=== PATIENT | female | born 1990 | race Caucasian/White ===

== ENCOUNTER 2016-11-30 10:55 | Emergency (ER) | payer OTHER ==
[2016-11-30] MEDS ORDERED: Sodium Chloride 0.9% 1000 ML 1,000 ML IV STA (11:21)
[2016-11-30] MEDS ORDERED: TORAdol 30 mg Injection IV ONE (11:21)
[2016-11-30] MEDS ORDERED: BENADRYL 50 MG/ML IV ONE (11:21)
[2016-11-30] MEDS ORDERED: Reglan 10 MG/2 ML IV ONE (11:21)
[2016-11-30] MEDS ORDERED: Sodium Chloride 0.9% 1000 ML 1,000 ML ONE (11:33)
[2016-11-30] MEDS ORDERED: Reglan 10 MG/2 ML ONE (11:33)
[2016-11-30] MEDS ORDERED: BENADRYL 50 MG/ML ONE (11:33)
[2016-11-30] MEDS ORDERED: TORAdol 30 mg Injection ONE (11:33)
--- NOTE | 2016-11-30 12:28 | ERPHSYRPT ---
- History of Present Illness Time Seen by Provider: 11/30/16 11:11 Source: patient Patient Subjective Stated Complaint: pt co cough-dry, runny clear nasal drainage , headache, fever, aches for 3 days Triage Nursing Assessment: pt alert and in no distress, resp easy,skin w/d. has dry cough Physician History: CC: fever Hx: 26 y/o healthy patient with 3 day hx of cough, mylagias, fever, chills, aches, pains. She was exposed to flu. Headache has been worse symptoms, and gradual. She has hx of migraine. Some nausea. Severity: moderate Allergies/Adverse Reactions: clarithromycin [From Biaxin] Allergy (Verified 11/30/16 11:10) Hx Tetanus, Diphtheria Vaccination/Date Given: Yes Hx Influenza Vaccination/Date Given: No Hx Pneumococcal Vaccination/Date Given: No Immunizations Up to Date: Yes - Review of Systems Constitutional: Fever, Chills, Malaise Eyes: No Symptoms Ears, Nose, & Throat: Throat Pain Respiratory: Cough Abdominal/Gastrointestinal: Nausea Genitourinary Symptoms: No Dysuria Skin: No Rash Neurological: Headache, No Focal Weakness, No Parasthesia All Other Systems: Reviewed and Negative - Past Medical History Pertinent Past Medical History: Yes Neurological History: Migraines ENT History: No Pertinent History Cardiac History: Other Respiratory History: No Pertinent History Endocrine Medical History: No Pertinent History Musculoskeletal History: No Pertinent History GI Medical History: Irritable Bowel History: No Pertinent History Psycho-Social History: No Pertinent History Female Reproductive Disorders: No Pertinent History Other Medical History: CHD, heart murmur - Past Surgical History Past Surgical History: Yes Neuro Surgical History: No Pertinent History Cardiac: No Pertinent History Respiratory: No Pertinent History Gastrointestinal: No Pertinent History Genitourinary: No Pertinent History Musculoskeletal: No Pertinent History Female Surgical History: No Pertinent History Other Surgical History: SURGERY ON FOREHEAD - Social History Smoking Status: Current every day smoker How long have you smoked: 5 Exposure to second hand smoke: Yes Drug Use: marijuana Patient Lives Alone: No - Female History Hx Last Menstrual Period: 11/27/16 - Nursing Vital Signs Nursing Vital Signs: Initial Vital Signs Temperature 98.4 F Temperature Source Oral Pulse Rate 86 Respiratory Rate 16 Blood Pressure [Left Arm] 87/52 Pain Intensity 5 - Physical Exam General Appearance: alert Eye Exam: PERRL/EOMI Ears, Nose, Throat Exam: normal ENT inspection, pharyngeal erythema Neck Exam: normal inspection, non-tender, supple Respiratory Exam: normal breath sounds, No lungs clear Cardiovascular Exam: No regular rate/rhythm Gastrointestinal/Abdomen Exam: soft, No tenderness, No distention Extremity Exam: normal inspection, normal range of motion Neurologic Exam: alert, oriented x 3, cooperative, sensation nml, No motor deficits Skin Exam: warm, dry, No rash SpO2 Interpretation: normal SpO2: 95 Oxygen Delivery: Room Air - Course Nursing assessment & vital signs reviewed: Yes Ordered Tests: Active Orders 24 hr Category Date Time Status Clean Catch Urine Specimen STAT Care 11/30/16 11:21 Active IV Insertion STAT Care 11/30/16 11:21 Active CULTURE,URINE Stat Lab 11/30/16 13:11 Ordered HCG,QUALITATIVE URINE Stat Lab 11/30/16 12:40 Completed UA W/ MICROSCOPIC Stat Lab 11/30/16 12:40 Completed Medication Summary Discontinued Medications Generic Name Dose Route Start Last Admin Trade Name Freq PRN Reason Stop Dose Admin Diphenhydramine HCl 25 mg 11/30/16 11:21 11/30/16 11:35 Benadryl 50 Mg/Ml IV 11/30/16 11:22 25 mg STAT ONE Administration Diphenhydramine HCl Confirm 11/30/16 11:33 Benadryl 50 Mg/Ml Administered 11/30/16 11:34 Dose 50 mg .ROUTE .STK-MED ONE Sodium Chloride 1,000 mls @ 999 mls/hr 11/30/16 11:21 11/30/16 11:36 Sodium Chloride 0.9% 1000 Ml IV 11/30/16 12:21 999 mls/hr .Q1H1M STA Administration Sodium Chloride Confirm 11/30/16 11:33 Sodium Chloride 0.9% 1000 Ml Administered 11/30/16 11:34 Dose 1,000 mls @ ud .ROUTE .STK-MED ONE Ketorolac Tromethamine 30 mg 11/30/16 11:21 11/30/16 11:35 Toradol 30 Mg Injection IV 11/30/16 11:22 30 mg STAT ONE Administration Ketorolac Tromethamine Confirm 11/30/16 11:33 Toradol 30 Mg Injection Administered 11/30/16 11:34 Dose 30 mg .ROUTE .STK-MED ONE Metoclopramide HCl 10 mg 11/30/16 11:21 11/30/16 11:36 Reglan 10 Mg/2 Ml IV 11/30/16 11:22 10 mg STAT ONE Administration Metoclopramide HCl Confirm 11/30/16 11:33 Reglan 10 Mg/2 Ml Administered 11/30/16 11:34 Dose 10 mg .ROUTE .STK-MED ONE Lab/Rad Data: Laboratory Results 11/30/16 11/30/16 11/30/16 Range/Units 12:40 12:40 11:24 Ur Collection Type VOID Urine Color YELLOW (YELLOW) Urine Appearance CLOUDY (CLEAR) Urine pH 5.5 (5-6) Ur Specific [place] 1.025 (1.005-1.025) Urine Protein TRACE (Negative) Urine Glucose (UA) NEGATIVE (NEGATIVE) mg/dL Urine Ketones TRACE (NEGATIVE) Urine Nitrite NEGATIVE (NEGATIVE) Urine Bilirubin NEGATIVE (NEGATIVE) Urine Urobilinogen 0.2 (0-1) mg/dL Urine WBC (Auto) SMALL (NEGATIVE) Urine RBC (Auto) NEGATIVE (0-5) Michael/ul Urine Microscopic WBC 10-15 (0-5) /HPF Ur Epithelial Cells MODERATE (FEW) /HPF Urine Bacteria MODERATE (NEGATIVE) /HPF Urine HCG, Qual NEGATIVE (Negative) Influenza Type A Ag POSITIVE (NEGATIVE) Influenza Type B Ag NEGATIVE (NEGATIVE) RSV (PCR) NEGATIVE (Negative) Specimen Received 11/30/16 1240 - Progress Progress Note: 11/30/16 13:14 Pt improved. She has flu A. Instr given. Urine culture sent but will not treat now. Symptoms instr given. Counseled pt/family regarding: lab results, diagnosis, need for follow-up - Departure Time of Disposition: 13:15 Departure Disposition: Home Clinical Impression: Influenza A Condition: Stable Critical Care Time: No Referrals: DAYNA CERVANTES [Primary Care Provider] - Instructions: Influenza -- Adult Additional Instructions: VIRAL ILLNESS 1. Rest at home and take any prescribed medications as directed or until gone. 2. Offer plenty of fluids as tolerated. 3. Acetaminophen or Ibuprofen as directed. 4. Be sure to follow up with your family physician or return to the emergency department if symptoms change or become worse. push oral fluids. Tylenol/ibuprofen as directed for fever/discomfort. Rx albuterol MDI. Prescriptions: Albuterol Sulfate [Albuterol Sulfate Hfa] 2 puff IH Q4-6HPRN PRN #1 [email or web address] PRN Reason: cough or wheeze
[2016-11-30 12:52] LABS: COMPLETE URINE MICROSCOPIC? YES; Collection Type VOID; Ph 5.5 (5-6)
[2016-11-30 13:04] LABS: Bacteria MODERATE /HPF (NEGATIVE); Epithelial Cells MODERATE /HPF (FEW)
[2016-11-30 13:38] VITALS: BP 90/50; PULSE 93; O2SAT 96
== END 2016-11-30 13:39 | disposition home or self-care (01) ==
LOC: ED 10:55
DX: J11.1 Influenza due to unidentified influenza virus with other respiratory manifestations (principal); R50.9 Fever, unspecified; R51 Headache
CPT/HCPCS: 36000; 81000; 84703; 87086; 87631; 96360; 96374; 96375; 99283; J1200; J1885

== ENCOUNTER 2017-03-24 20:01 | Emergency (ER) | payer OTHER ==
[2017-03-24 20:08] VITALS: O2SAT 100
--- NOTE | 2017-03-24 21:38 | ERPHSYRPT ---
- History of Present Illness Time Seen by Provider: 03/24/17 21:29 Source: patient Exam Limitations: no limitations Patient Subjective Stated Complaint: a0 - reports 10 weeks - states that she had onset of frontal migraine headache this morning and gradually getting worse with dizziness and nausea - 4-5 episodes of vomiting today Triage Nursing Assessment: ambulatory to treatment area - steady gait - moves all extremities with equal strength. alert/oriented - unpleasant affect. skin pwd - no rash/injury. resps easy - non-labored Physician History: FOR THE PAST 11 HOURS PT HAS HAD A FRONTAL HEADACHE; FOR THE PAST 9 HOURS DIZZINESS, SHORTNESS OF AIR AND VOMITING X5 WITHOUT BLOOD. LAST BM WAS THIS AM & WNL. PT STATES SHE IS 10 WEEKS AND ALL IS GOING WELL WITH THE . Allergies/Adverse Reactions: clarithromycin [From Biaxin] Allergy (Verified 03/24/17 20:05) Hx Tetanus, Diphtheria Vaccination/Date Given: Yes Hx Influenza Vaccination/Date Given: No Hx Pneumococcal Vaccination/Date Given: No Immunizations Up to Date: Yes - Review of Systems Constitutional: No Fever Respiratory: Dyspnea Cardiac: No Chest Pain Abdominal/Gastrointestinal: Vomiting, No Abdominal Pain, No Diarrhea Neurological: Dizziness, Headache All Other Systems: Reviewed and Negative - Past Medical History Pertinent Past Medical History: Yes Neurological History: Migraines ENT History: No Pertinent History Cardiac History: Other Respiratory History: No Pertinent History Endocrine Medical History: No Pertinent History Musculoskeletal History: No Pertinent History GI Medical History: Irritable Bowel History: No Pertinent History Psycho-Social History: No Pertinent History Female Reproductive Disorders: No Pertinent History Other Medical History: CHD, heart murmur - Past Surgical History Past Surgical History: Yes Neuro Surgical History: No Pertinent History Cardiac: No Pertinent History Respiratory: No Pertinent History Gastrointestinal: No Pertinent History Genitourinary: No Pertinent History Musculoskeletal: No Pertinent History Female Surgical History: No Pertinent History Other Surgical History: SURGERY ON FOREHEAD - Social History Smoking Status: Never smoker How long have you smoked: 5 Exposure to second hand smoke: No Drug Use: none Patient Lives Alone: No - Female History Hx Last Menstrual Period: 01/18/2017 - Nursing Vital Signs Nursing Vital Signs: Initial Vital Signs Temperature 98.0 F Temperature Source Oral Pulse Rate 104 Respiratory Rate 20 Blood Pressure [Right Arm] 134/79 Pain Intensity 4 - Physical Exam General Appearance: alert Eye Exam: PERRL/EOMI Ears, Nose, Throat Exam: TMs normal, pharynx normal, moist mucous membranes Neck Exam: normal inspection Respiratory Exam: lungs clear Cardiovascular Exam: normal peripheral pulses Gastrointestinal/Abdomen Exam: soft, normal bowel sounds Back Exam: normal range of motion Extremity Exam: normal inspection, normal range of motion, No pedal edema Neurologic Exam: 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, 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, 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, normal mood/ affect, sensation nml, No motor deficits Skin Exam: warm, dry SpO2 Interpretation: normal SpO2: 100 Oxygen Delivery: Room Air - Course Nursing assessment & vital signs reviewed: Yes EKG Interpreted by Me: RATE (61), NORMAL AXIS, NORMAL QRS, Other (SINUS ARRHYTHMIA) Ordered Tests: Active Orders 24 hr Category Date Time Status EKG-ER Only STAT Care 03/24/17 21:45 Active IV Insertion STAT Care 03/24/17 21:45 Active AMYLASE Stat Lab 03/24/17 22:11 Completed CBC W DIFF Stat Lab 03/24/17 22:11 Completed CMP Stat Lab 03/24/17 22:11 Completed LIPASE Stat Lab 03/24/17 22:11 Completed MAG [MAGNESIUM] Stat Lab 03/24/17 22:11 Completed TROPONIN Stat Lab 03/24/17 22:11 Completed UA W/RFX UR CULTURE Stat Lab 03/24/17 20:00 Completed Medication Summary Generic Name Dose Route Start Last Admin Trade Name Freq PRN Reason Stop Dose Admin Magnesium Oxide 400 mg 03/25/17 10:00 Mag-Ox 400 PO 04/24/17 09:59 BID HARRISON Discontinued Medications Generic Name Dose Route Start Last Admin Trade Name Freq PRN Reason Stop Dose Admin Sodium Chloride 1,000 mls @ 999 mls/hr 03/24/17 21:45 03/24/17 22:02 Sodium Chloride 0.9% 1000 Ml IV 03/24/17 22:45 999 mls/hr .Q1H1M STA Administration Sodium Chloride Confirm 03/24/17 21:51 Sodium Chloride 0.9% 1000 Ml Administered 03/24/17 21:52 Dose 1,000 mls @ ud .ROUTE .STK-MED ONE Promethazine HCl 12.5 mg 03/24/17 21:45 03/24/17 22:02 Phenergan 25 Mg Inj IV 03/24/17 21:46 12.5 mg STAT ONE Administration Promethazine HCl Confirm 03/24/17 21:50 Phenergan 25 Mg Inj Administered 03/24/17 21:51 Dose 25 mg .ROUTE .STK-MED ONE Lab/Rad Data: Laboratory Result Diagrams 03/24/17 22:11 03/24/17 22:11 Laboratory Results 03/24/17 03/24/17 03/24/17 Range/Units 22:11 22:11 22:11 WBC 9.4 (4.0-10.5) K/mm3 RBC 4.31 (4.1-5.4) M/mm3 Hgb 13.2 (12.0-16.0) gm/dl Hct 38.3 (35-47) % MCV 88.9 (78-100) fl MCH 30.6 (26-32) pg MCHC 34.5 (32-36) g/dl RDW 12.4 (11.5-14.0) % Plt Count 243 (150-450) K/mm3 MPV 10.9 H (6-9.5) fl Gran % 60.0 (36.0-66.0) % Lymphocytes % 30.6 (24.0-44.0) % Monocytes % 8.2 (0.0-12.0) % Eosinophils % 1.0 (0.00-5.0) % Basophils % 0.2 (0.0-0.4) % Basophils # 0.02 (0-0.4) Sodium 137 (136-145) mEq/L Potassium 3.7 (3.5-5.1) mEq/L Chloride 105 (98-107) mEq/L Carbon Dioxide 23.2 (21-32) mEq/L Anion Gap 12.7 (5-15) MEQ/L BUN 3 L (9-20) mg/dL Creatinine 0.58 (0.55-1.30) mg/dl Estimated GFR > 60 ML/MIN Glucose 76 (70-110) MG/DL Calcium 8.4 L (8.5-10.1) mg/dL Magnesium 1.7 L (1.8-2.4) mg/dL Total Bilirubin 0.40 (0.2-1.0) mg/dL AST 13 L (15-37) U/L ALT 10 L (12-78) U/L Alkaline Phosphatase 54 (46-116) U/L Troponin I < 0.017 (0.000-0.056) ng/ml Serum Total Protein 6.8 (6.4-8.2) gm/dL Albumin 3.5 (3.4-5.0) g/dL Amylase 39 (25-115) U/L Lipase 90 (73-393) U/L Ur Collection Type Urine Color (YELLOW) Urine Appearance (CLEAR) Urine pH (5-6) Ur Specific [place] (1.005-1.025) Urine Protein (Negative) Urine Glucose (UA) (NEGATIVE) mg/dL Urine Ketones (NEGATIVE) Urine Nitrite (NEGATIVE) Urine Bilirubin (NEGATIVE) Urine Urobilinogen (0-1) mg/dL Urine WBC (Auto) (NEGATIVE) Urine RBC (Auto) (0-5) Michael/ul Specimen Received 03/24/17 Range/Units 20:00 WBC (4.0-10.5) K/mm3 RBC (4.1-5.4) M/mm3 Hgb (12.0-16.0) gm/dl Hct (35-47) % MCV (78-100) fl MCH (26-32) pg MCHC (32-36) g/dl RDW (11.5-14.0) % Plt Count (150-450) K/mm3 MPV (6-9.5) fl Gran % (36.0-66.0) % Lymphocytes % (24.0-44.0) % Monocytes % (0.0-12.0) % Eosinophils % (0.00-5.0) % Basophils % (0.0-0.4) % Basophils # (0-0.4) Sodium (136-145) mEq/L Potassium (3.5-5.1) mEq/L Chloride (98-107) mEq/L Carbon Dioxide (21-32) mEq/L Anion Gap (5-15) MEQ/L BUN (9-20) mg/dL Creatinine (0.55-1.30) mg/dl Estimated GFR ML/MIN Glucose (70-110) MG/DL Calcium (8.5-10.1) mg/dL Magnesium (1.8-2.4) mg/dL Total Bilirubin (0.2-1.0) mg/dL AST (15-37) U/L ALT (12-78) U/L Alkaline Phosphatase (46-116) U/L Troponin I (0.000-0.056) ng/ml Serum Total Protein (6.4-8.2) gm/dL Albumin (3.4-5.0) g/dL Amylase (25-115) U/L Lipase (73-393) U/L Ur Collection Type CLEAN CATCH Urine Color YELLOW (YELLOW) Urine Appearance CLEAR (CLEAR) Urine pH 7.0 (5-6) Ur Specific [place] 1.010 (1.005-1.025) Urine Protein NEGATIVE (Negative) Urine Glucose (UA) NEGATIVE (NEGATIVE) mg/dL Urine Ketones NEGATIVE (NEGATIVE) Urine Nitrite NEGATIVE (NEGATIVE) Urine Bilirubin NEGATIVE (NEGATIVE) Urine Urobilinogen 0.2 (0-1) mg/dL Urine WBC (Auto) NEGATIVE (NEGATIVE) Urine RBC (Auto) NEGATIVE (0-5) Michael/ul Specimen Received 03/24/171999 - Departure Time of Disposition: 23:35 Departure Disposition: Home Clinical Impression: VOMITING, DYSPNEA, MILD HYPOMAGNESEMIA, DIZZINESS, HEADACHE Condition: Fair Critical Care Time: No Instructions: Vertigo, Headache Additional Instructions: FOLLOW UP WITH PRIVATE DOCTOR TOMORROW. Prescriptions: Promethazine HCl 25 mg [Phenergan 25 mg] 25 mg PO Q4H PRN PRN #14 tablet PRN Reason: Nausea/Vomiting
[2017-03-24] MEDS ORDERED: Phenergan 25 MG INJ IV ONE (21:45)
[2017-03-24] MEDS ORDERED: Sodium Chloride 0.9% 1000 ML 1,000 ML IV STA (21:45)
[2017-03-24] MEDS ORDERED: Phenergan 25 MG INJ ONE (21:50)
[2017-03-24] MEDS ORDERED: Sodium Chloride 0.9% 1000 ML 1,000 ML ONE (21:51)
[2017-03-24 22:08] LABS: ADD URINE CULTURE? NO (NO); COMPLETE URINE MICROSCOPIC? NO; Collection Type CLEAN CATCH
[2017-03-24 22:15] LABS: BASOPHIL % 0.2 % (0.0-0.4); Lymphocytes % 30.6 % (24.0-44.0); Mean Cell Volume 88.9 fl (78-100); Mean Corpuscular Hemoglobin 30.6 pg (26-32); Mean Platelet Volume 10.9 fl (6-9.5); Monocytes % 8.2 % (0.0-12.0); Platelet Count 243 K/mm3 (150-450); Red Blood Count 4.31 M/mm3 (4.1-5.4); Red Cell Distribution Width 12.4 % (11.5-14.0); White Blood Count 9.4 K/mm3 (4.0-10.5)
[2017-03-24 22:46] LABS: ALBUMIN 3.5 g/dL (3.4-5.0); ALKALINE PHOSPHATASE 54 U/L (46-116); ANION GAP 12.7 MEQ/L (5-15); BLOOD UREA NITROGEN 3 mg/dL (9-20); CHLORIDE 105 mEq/L (98-107); Carbon Dioxide 23.2 mEq/L (21-32); Glucose 76 MG/DL (70-110); LIPASE 90 U/L (73-393); Potassium 3.7 mEq/L (3.5-5.1); SGOT/AST 13 U/L (15-37); SGPT/ALT 10 U/L (12-78); SODIUM 137 mEq/L (136-145); Total Protein 6.8 gm/dL (6.4-8.2)
[2017-03-24 22:47] LABS: TROPONIN < 0.017 ng/ml (0.000-0.056)
[2017-03-24] MEDS ORDERED: MAG-OX 400 ONE (23:41)
[2017-03-24 23:52] VITALS: BP 119/70; PULSE 76
[2017-03-25] MEDS ORDERED: MAG-OX 400 PO SCH (10:00)
== END 2017-03-24 23:51 | disposition home or self-care (01) ==
LOC: ED 20:01
DX: R11.2 Nausea with vomiting, unspecified (principal); R06.00 Dyspnea, unspecified; E83.42 Hypomagnesemia; R42 Dizziness and giddiness; R51 Headache; Z3A.10 10 weeks gestation of pregnancy
CPT/HCPCS: 36000; 36415; 80053; 81002; 82150; 83690; 83735; 84484; 85025; 93005; 96360; 96374; 99284; J2550; A9270-GY

== ENCOUNTER 2017-06-28 11:44 | Observation (INO) | payer OTHER ==
[2017-06-28] MEDS ORDERED: Phenergan 25 MG INJ IV PRN (12:23)
[2017-06-28] MEDS ORDERED: Sodium Chloride 0.9% 1000 ML 1,000 ML IV SCH (12:30)
[2017-06-28 12:49] LABS: BASOPHIL % 0.1 % (0.0-0.4); Eosinophil % 0.4 % (0.00-5.0); Lymphocytes % 13.5 % (24.0-44.0); Mean Cell Volume 91.6 fl (78-100); Mean Platelet Volume 10.6 fl (6-9.5); Platelet Count 227 K/mm3 (150-450); Red Blood Count 3.93 M/mm3 (4.1-5.4); Red Cell Distribution Width 12.6 % (11.5-14.0); White Blood Count 11.3 K/mm3 (4.0-10.5)
[2017-06-28 12:50] LABS: Mean Corpuscular Hemoglobin 31.2 pg (26-32)
[2017-06-28 13:18] LABS: ALBUMIN 2.9 g/dL (3.4-5.0); ALKALINE PHOSPHATASE 55 U/L (46-116); ANION GAP 11.8 MEQ/L (5-15); BLOOD UREA NITROGEN 6 mg/dL (9-20); CHLORIDE 107 mEq/L (98-107); Carbon Dioxide 24.7 mEq/L (21-32); Glucose 82 MG/DL (70-110); Potassium 3.5 mEq/L (3.5-5.1); SGOT/AST 16 U/L (15-37); SGPT/ALT 16 U/L (12-78); SODIUM 140 mEq/L (136-145); Total Protein 6.5 gm/dL (6.4-8.2)
[2017-06-28] MEDS: MORPHINE SULFATE 10 MG/ML IV PRN ×2 (13:18→19:56)
[2017-06-28] MEDS: ROCEPHIN 1 Gm-D5w 50 ml Bag** 1 G/50 ML IVPB IV SCH (13:22)
[2017-06-28] MEDS: Lactated Ringers 1,000 ML IV SCH ×2 (15:43→23:51)
[2017-06-28 16:56] LABS: Collection Type VOID; Glucose NEGATIVE (NEGATIVE); Leukocyte Esterase TRACE (NEGATIVE)
[2017-06-28 16:57] LABS: Bacteria FEW /HPF (NEGATIVE); Bilirubin NEGATIVE (NEGATIVE); Blood NEGATIVE Ery/ul (0-5); COMPLETE URINE MICROSCOPIC? YES; Epithelial Cells FEW /HPF (FEW); Mucus SLIGHT /HPF (NEGATIVE)
[2017-06-29 04:18] VITALS: O2SAT 97
[2017-06-29] MEDS: Lactated Ringers 1,000 ML IV SCH (07:58)
--- NOTE | 2017-06-29 08:22 | PCM.NOTE ---
Date and Time: 06/29/17817 Subjective Assessment: 27 yo at 23+ weeks admitted from office yesterday with sinusitis, ARNDT, N/V not tolerating po. ARNDT was 8/10; now 4.5/10, L frontal. Tolerating CLD. Feeling better. FHT positive at bedside. - Review of Systems Constitutional: No Fever Abdominal/Gastrointestinal: No Vomiting Objective Exam General Appearance: mild distress Neurologic Exam: alert, oriented x 3, cooperative Skin Exam: normal color, warm, dry Neck Exam: normal inspection Respiratory Exam: normal breath sounds, No crackles/rales, No rhonchi, No wheezing Cardiovascular Exam: regular rate/rhythm, normal heart sounds, No murmur Gastrointestinal/Abdomen Exam: soft, normal bowel sounds, No tenderness, No mass OBJECTIVE DATA Vital Signs: Vital Signs - 24 hr Temp Pulse Resp BP BP Pulse Ox 06/29/17 07:13 97.8 F 62 16 97/52 97 06/29/17 04:00 97.9 F 68 16 85/49 97 06/28/17 23:42 97.2 F 61 16 96/53 98 06/28/17 22:24 98.0 F 60 18 77/41 98 06/28/17 16:09 96/55 06/28/17 15:59 97.8 F 59 L 16 90/46 96 06/28/17 13:38 97.8 F 85 18 113/68 96 06/28/17 12:00 97.8 F 85 18 113/68 96 Pain Assessment - Last Documented Pain Intensity 4 Pain Scale Used [facility] Intake and Output: Intake & Output 06/26/17 06/27/17 06/28/17 06/29/17 11:59 11:59 11:59 11:59 Intake Total 5186 Output Total 370 Balance 4816 Weight 79.696 kg Lab Results: Lab Results-Last 24 Hours 06/28/17 06/28/17 06/28/17 Range/Units 12:10 12:10 16:36 WBC 11.3 H (4.0-10.5) K/mm3 RBC 3.93 L (4.1-5.4) M/mm3 Hgb 12.3 (12.0-16.0) gm/dl Hct 36.0 (35-47) % MCV 91.6 (78-100) fl MCH 31.2 (26-32) pg MCHC 34.2 (32-36) g/dl RDW 12.6 (11.5-14.0) % Plt Count 227 (150-450) K/mm3 MPV 10.6 H (6-9.5) fl Gran % 81.0 H (36.0-66.0) % Lymphocytes % 13.5 L (24.0-44.0) % Monocytes % 5.0 (0.0-12.0) % Eosinophils % 0.4 (0.00-5.0) % Basophils % 0.1 (0.0-0.4) % Basophils # 0.01 (0-0.4) Sodium 140 (136-145) mEq/L Potassium 3.5 (3.5-5.1) mEq/L Chloride 107 (98-107) mEq/L Carbon Dioxide 24.7 (21-32) mEq/L Anion Gap 11.8 (5-15) MEQ/L BUN 6 L (9-20) mg/dL Creatinine 0.54 L (0.55-1.30) mg/dl Estimated GFR > 60 ML/MIN Glucose 82 (70-110) MG/DL Calcium 8.3 L (8.5-10.1) mg/dL Total Bilirubin 0.40 (0.2-1.0) mg/dL AST 16 (15-37) U/L ALT 16 (12-78) U/L Alkaline Phosphatase 55 (46-116) U/L Serum Total Protein 6.5 (6.4-8.2) gm/dL Albumin 2.9 L (3.4-5.0) g/dL Ur Collection Type VOID Urine Color YELLOW (YELLOW) Urine Appearance CLEAR (CLEAR) Urine pH 6.0 (5-6) Ur Specific [place] 1.020 (1.005-1.025) Urine Protein TRACE (Negative) Urine Ketones MODERATE (NEGATIVE) Urine Blood NEGATIVE (0-5) Michael/ul Urine Nitrite NEGATIVE (NEGATIVE) Urine Bilirubin NEGATIVE (NEGATIVE) Urine Urobilinogen NORMAL (0-1) mg/dL Ur Leukocyte Esterase TRACE (NEGATIVE) Urine Microscopic WBC 2-5 (0-5) /HPF Ur Epithelial Cells FEW (FEW) /HPF Urine Bacteria FEW (NEGATIVE) /HPF Urine Mucus SLIGHT (NEGATIVE) /HPF Urine Glucose NEGATIVE (NEGATIVE) mg/dL Specimen Received 06/28/17 1636 Assessment/Plan (1) Current Visit: Yes Status: Acute Qualifiers: Weeks of gestation: 23 weeks Qualified Code(s): Z3A.23 - 23 weeks gestation of Assessment & Plan: Doing well, FHT around 160 today at bedside. Code(s): Z33.1 - STATE, INCIDENTAL (2) Sinusitis Current Visit: Yes Status: Acute Qualifiers: Sinusitis location: frontal Chronicity: acute Recurrence: non-recurrent Qualified Code(s): J01.10 - Acute frontal sinusitis, unspecified Assessment & Plan: On IV rocephin. Improved. If ARNDT much better later today, will discharge to home. Otherwise may need to stay another day. Code(s): J32.9 - CHRONIC SINUSITIS, UNSPECIFIED (3) Vomiting Current Visit: Yes Status: Resolved Assessment & Plan: Likely due to acute infection/sinus drainage. Resolved. Advance diet to regular. Code(s): R11.10 - VOMITING, UNSPECIFIED
[2017-06-29] MEDS ORDERED: [UNRECOGNIZED DRUG - REMARK] PO SCH (10:00)
[2017-06-29] MEDS ORDERED: THERAGRAN MULTIVITAMIN PO SCH (10:00)
[2017-06-29] MEDS: ROCEPHIN 1 Gm-D5w 50 ml Bag** 1 G/50 ML IVPB IV SCH (10:13)
[2017-06-29 10:49] VITALS: BP 96/51; PULSE 58
--- NOTE | 2017-06-29 13:11 | PCM.DS ---
Discharge Summary Date of Admission: 06/28/17 11:44 Admitting Physician: DAYNA CERVANTES Primary Care Provider: DAYNA CERVANTES Allergies Allergies clarithromycin [From Biaxin] Allergy (Verified 03/24/17 20:05) Hospital Summary - Hospital Course Hospital Course: Pt at 23 + weeks admitted for sinusitis and not tolerating po. She was feeling better this morning but still with ARNDT; currently feeling good and tolerated regular lunch; will go home on po augmentin. - Vitals & Intake/Output Vital Signs: Vital Signs Temperature 98.5 F 06/29/17 10:48 Pulse Rate 58 L 06/29/17 10:48 Respiratory Rate 18 06/29/17 10:48 Blood Pressure 96/51 06/29/17 10:48 O2 Sat by Pulse Oximetry 97 06/29/17 10:48 Intake & Output: Intake & Output 06/27/17 06/28/17 06/29/17 06/30/17 11:59 11:59 11:59 11:59 Intake Total 5546 360 Output Total 1170 400 Balance 4376 -40 Weight 79.696 kg - Lab Result Diagrams: 06/28/17 12:10 06/28/17 12:10 Lab Results-Last 24 Hrs: Lab Results-Last 24 Hours 06/28/17 06/28/17 Range/Units 12:10 16:36 Sodium 140 (136-145) mEq/L Potassium 3.5 (3.5-5.1) mEq/L Chloride 107 (98-107) mEq/L Carbon Dioxide 24.7 (21-32) mEq/L Anion Gap 11.8 (5-15) MEQ/L BUN 6 L (9-20) mg/dL Creatinine 0.54 L (0.55-1.30) mg/dl Estimated GFR > 60 ML/MIN Glucose 82 (70-110) MG/DL Calcium 8.3 L (8.5-10.1) mg/dL Total Bilirubin 0.40 (0.2-1.0) mg/dL AST 16 (15-37) U/L ALT 16 (12-78) U/L Alkaline Phosphatase 55 (46-116) U/L Serum Total Protein 6.5 (6.4-8.2) gm/dL Albumin 2.9 L (3.4-5.0) g/dL Ur Collection Type VOID Urine Color YELLOW (YELLOW) Urine Appearance CLEAR (CLEAR) Urine pH 6.0 (5-6) Ur Specific [place] 1.020 (1.005-1.025) Urine Protein TRACE (Negative) Urine Ketones MODERATE (NEGATIVE) Urine Blood NEGATIVE (0-5) Michael/ul Urine Nitrite NEGATIVE (NEGATIVE) Urine Bilirubin NEGATIVE (NEGATIVE) Urine Urobilinogen NORMAL (0-1) mg/dL Ur Leukocyte Esterase TRACE (NEGATIVE) Urine Microscopic WBC 2-5 (0-5) /HPF Ur Epithelial Cells FEW (FEW) /HPF Urine Bacteria FEW (NEGATIVE) /HPF Urine Mucus SLIGHT (NEGATIVE) /HPF Urine Glucose NEGATIVE (NEGATIVE) mg/dL Specimen Received 06/28/17 6227 - Procedures and Test Procedures and Tests throughout Hospitalization: Therapy Orders & Screens 06/28/17 14:38 Smoking Cessation Education ONCE Comment: Diagnosis: 23+ wk, vomiting, sinusitis Smoking Status: Current every day smoker How long have you smoked: 5 Have you smoked in the past 12 months: Yes Approximately how many cigarettes per day: 10 Do you dip or chew tobacco: No Discharge Exam General Appearance: mild distress (due to ARNDT at 0800), alert (exam done at approx 0800 this morning) Neurologic Exam: alert, oriented x 3, cooperative Skin Exam: normal color, warm, dry Respiratory Exam: normal breath sounds, lungs clear, No crackles/rales, No rhonchi, No wheezing Cardiovascular Exam: regular rate/rhythm, normal heart sounds, No murmur Gastrointestinal/Abdomen Exam: soft, normal bowel sounds, other (gravid, fundus palpable just superior to umbilicus) Extremity Exam: normal inspection Back Exam: normal inspection Final Diagnosis/Problem List - Final Discharge Diagnosis/Problem (1) Current Visit: Yes Status: Acute Assessment & Plan: stable, doing great, FHT + this morning. (2) Sinusitis Current Visit: Yes Status: Acute Assessment & Plan: home on augmentin x 8d (3) Vomiting Current Visit: Yes Status: Resolved Assessment & Plan: now lilliam po. - Discharge Disposition: Home, Self-Care Condition: Stable Prescriptions: New Amoxicillin/Potassium Clav [Augmentin 875-125 Tablet] 875 mg PO BID #16 tablet Continue Pnv No.118/Iron Fumarate/FA [ 19 Chewable Tablet] 2 tab PO DAILY Instructions: Migraine, Sinusitis, Vomiting -- Adult Follow up with: DAYNA CERVANTES [Primary Care Provider] - 07/06/17 11:15 am Forms: Discharge Instructions
== END 2017-06-29 14:20 | disposition home or self-care (01) ==
LOC: MED SURG 11:44
PROVIDERS: ADMIT Family Medicine; ATTEND Family Medicine
DX: J01.10 Acute frontal sinusitis, unspecified (principal); R11.10 Vomiting, unspecified; R51 Headache; Z33.1 Pregnant state, incidental
CPT/HCPCS: 36415; 80053; 81000; 85025; G0378; J0696; J2270; J2550; A9270-GY

== ENCOUNTER 2017-08-09 15:39 | Observation (INO) | payer OTHER ==
[2017-08-09 17:17] LABS: Bacteria FEW /HPF (NEGATIVE); Bilirubin NEGATIVE (NEGATIVE); Blood NEGATIVE Ery/ul (0-5); COMPLETE URINE MICROSCOPIC? YES; Collection Type VOID; Epithelial Cells FEW /HPF (FEW); Glucose NEGATIVE (NEGATIVE); Leukocyte Esterase 1+ (NEGATIVE)
[2017-08-09] MEDS ORDERED: TYLENOL 325 MG PO PRN (17:59)
[2017-08-09 18:25] LABS: BASOPHIL % 0.2 % (0.0-0.4); Eosinophil % 0.7 % (0.00-5.0); Granulocytes % 72.2 % (36.0-66.0); Lymphocytes % 20.7 % (24.0-44.0); Mean Cell Volume 92.4 fl (78-100); Mean Corpuscular Hemoglobin 31.6 pg (26-32); Mean Platelet Volume 10.3 fl (6-9.5); Monocytes % 6.2 % (0.0-12.0); Platelet Count 239 K/mm3 (150-450); Red Blood Count 3.95 M/mm3 (4.1-5.4); Red Cell Distribution Width 12.3 % (11.5-14.0); White Blood Count 10.4 K/mm3 (4.0-10.5)
[2017-08-09 18:44] LABS: ALBUMIN 3.1 g/dL (3.4-5.0); ALKALINE PHOSPHATASE 65 U/L (46-116); ANION GAP 14.4 MEQ/L (5-15); BLOOD UREA NITROGEN 8 mg/dL (9-20); CHLORIDE 102 mEq/L (98-107); Carbon Dioxide 23.6 mEq/L (21-32); Glucose 89 MG/DL (70-110); Potassium 3.9 mEq/L (3.5-5.1); SGOT/AST 9 U/L (15-37); SGPT/ALT 13 U/L (12-78); SODIUM 136 mEq/L (136-145)
[2017-08-09] MEDS: Lactated Ringers 1,000 ML IV SCH (19:29)
[2017-08-10] MEDS: Lactated Ringers 1,000 ML IV SCH (03:09)
[2017-08-10 08:13] VITALS: BP 101/63; PULSE 75
[2017-08-10] MEDS ORDERED: Celestone Soluspan 6MG/ML IM ONE (08:27)
--- NOTE | 2017-08-10 08:47 | XRAY ---
Exam: OB ultrasound examination greater than 14 weeks from 08/10/2017. Comparison: OB ultrasound examination less than 14 weeks from 05/17/2017. Indication: Size and dates, history of demise, assess cervical length. Findings: A single live intrauterine fetus is seen in the cephalic lie. Both cardiac motion and body motion were seen. The heart rate measured 150 bpm. The placenta is anterior and not low-lying. A normal amount of amniotic fluid is seen with an amniotic fluid index of 17.95 cm. Average measurements of the maternal cervical canal length was 2.65 cm which is slightly less than normal (normal being greater than 3 cm). Measurements of the biparietal diameter, head circumference, abdominal circumference, and femur length suggest a composite gestational age of 29 weeks 5 days which represents good interval growth since the prior study of 05/17/2017. In fact, it is about 3 days ahead of that anticipated. Estimated due date determined by the earlier ultrasound exam from 05/17/2017 is 10/24/2017. Estimated weight is 1296 g plus or -194.38 g (2 lbs. 14 oz.+ or -7 ounces) placing the fetus in a 23.1 percentile. The size ratios are all within normal limits. Gross assessment of the ventricles, spine, lips/nose, four-chamber heart, diaphragm, stomach, kidneys, umbilical cord insertion site, three-vessel umbilical cord, and urinary bladder appear unremarkable. Impression: 1. 29 week 5 day single live intrauterine fetus in cephalic lie. This represents satisfactory interval growth since the prior exam of 05/17/2017. See above. 2. Estimated weight at this time is 2 lbs. 14 oz. 3. A normal amount of amniotic fluid is seen with an amniotic fluid index of 17.95 cm. 4. The placenta is anterior. There is no evidence of placenta previa or abruption. 5. Average maternal cervical canal length is slightly decreased at 2.65 cm. The cervical canal appears closed.
[2017-08-11] MEDS ORDERED: Celestone Soluspan 6MG/ML ONE (09:19)
== END 2017-08-10 14:45 | disposition home or self-care (01) ==
LOC: OB 15:39 → UNDODISOB 08-10 14:45
PROVIDERS: ADMIT Family Medicine; ATTEND Family Medicine
DX: O26.893 Other specified pregnancy related conditions, third trimester (principal); Z3A.29 29 weeks gestation of pregnancy
CPT/HCPCS: 36415; 76805; 80053; 80307; 81000; 82731; 85025; 96372; G0378; J0702; A9270-GY

== ENCOUNTER 2017-08-11 03:01 | Observation (INO) | payer OTHER ==
[2017-08-11 06:25] VITALS: BP 120/68; PULSE 78
[2017-08-11] MEDS ORDERED: OMNIPEN 2 GM / NACL 100ML 100 ML IV ONE (20:16)
[2017-08-11] MEDS ORDERED: TYLENOL EXTRA STRENGTH 500 MG PO PRN (20:16)
[2017-08-11] MEDS ORDERED: XYLOCAINE 1% HCL 20 ML MDV IJ PRN (20:16)
[2017-08-11] MEDS ORDERED: Zofran 4 MG/2 ML VIAL IV PRN (20:16)
[2017-08-11] MEDS ORDERED: Lactated Ringers 1,000 ML IV SCH (20:30)
[2017-08-11] MEDS ORDERED: PITOCIN 30 UNITS/ LR 500 ML 500 ML IV SCH (20:30)
[2017-08-12] MEDS ORDERED: OMNIPEN 1GM / NaCl 100ML 100 ML IV SCH (00:18)
== END 2017-08-11 05:40 | disposition home or self-care (01) ==
LOC: OTH 03:01 → UNDOADMOB 03:08 → OB 03:08 → UNDODISOB 05:40
PROVIDERS: ADMIT Family Medicine; ATTEND Family Medicine
DX: Z34.83 Encounter for supervision of other normal pregnancy, third trimester (principal)
CPT/HCPCS: 80307; G0378

== ENCOUNTER 2017-08-24 15:23 | Observation (INO) | payer OTHER ==
[2017-08-24 16:14] VITALS: BP 108/64; PULSE 72
[2017-08-24] MEDS ORDERED: TYLENOL EXTRA STRENGTH 500 MG PO ONE (16:42)
[2017-08-24] MEDS ORDERED: TYLENOL EXTRA STRENGTH 500 MG PO PRN (17:15)
== END 2017-08-24 17:05 | disposition home or self-care (01) ==
LOC: MED SURG 15:23 → UNDOADMOB 15:23 → UNDODISOB 17:05
PROVIDERS: ADMIT Family Medicine; ATTEND Family Medicine
DX: Z34.83 Encounter for supervision of other normal pregnancy, third trimester (principal)
CPT/HCPCS: 80307; G0378

== ENCOUNTER 2017-09-02 17:47 | Observation (INO) | payer OTHER ==
[2017-09-02] MEDS ORDERED: Lactated Ringers 1,000 ML IV ONE ×2 (20:44→20:45)
[2017-09-02] MEDS ORDERED: BRETHINE 1 MG/ML SQ ONE (20:44)
[2017-09-02] MEDS ORDERED: BRETHINE 1 MG/ML ONE (21:08)
[2017-09-02 23:23] VITALS: BP 126/61; PULSE 100
== END 2017-09-02 23:20 | disposition home or self-care (01) ==
LOC: OB 17:47
PROVIDERS: ADMIT Family Medicine; ATTEND Family Medicine
DX: Z34.83 Encounter for supervision of other normal pregnancy, third trimester (principal)
CPT/HCPCS: 80307; G0378

== ENCOUNTER 2017-09-09 14:28 | Observation (INO) | payer OTHER ==
[2017-09-09 15:35] LABS: Bacteria FEW /HPF (NEGATIVE); Bilirubin NEGATIVE (NEGATIVE); Blood NEGATIVE Ery/ul (0-5); COMPLETE URINE MICROSCOPIC? YES; Collection Type VOID; Epithelial Cells FEW /HPF (FEW); Glucose NEGATIVE (NEGATIVE); Leukocyte Esterase TRACE (NEGATIVE)
[2017-09-09] MEDS ORDERED: Lactated Ringers 1,000 ML IV ONE (15:46)
[2017-09-09] MEDS ORDERED: BRETHINE 1 MG/ML SQ ONE (15:46)
[2017-09-09 20:09] VITALS: BP 110/62; PULSE 82
== END 2017-09-09 19:20 | disposition home or self-care (01) ==
LOC: OB 14:28
PROVIDERS: ADMIT Family Medicine; ATTEND Family Medicine
DX: Z34.83 Encounter for supervision of other normal pregnancy, third trimester (principal)
CPT/HCPCS: 80307; 81000; G0378

== ENCOUNTER 2017-09-12 16:32 | Observation (INO) | payer OTHER ==
[2017-09-12 17:18] LABS: Collection Type CLEAN CATCH
[2017-09-12 17:19] LABS: Bilirubin NEGATIVE (NEGATIVE); Blood NEGATIVE Ery/ul (0-5); COMPLETE URINE MICROSCOPIC? YES; Glucose NEGATIVE (NEGATIVE); Leukocyte Esterase TRACE (NEGATIVE); Mucus MODERATE /HPF (NEGATIVE)
[2017-09-12 17:20] LABS: Bacteria FEW /HPF (NEGATIVE); Epithelial Cells MODERATE /HPF (FEW)
[2017-09-12 17:59] VITALS: BP 119/76; PULSE 96
== END 2017-09-12 18:30 | disposition home or self-care (01) ==
LOC: OB 16:32
PROVIDERS: ADMIT Family Medicine; ATTEND Family Medicine
DX: Z34.83 Encounter for supervision of other normal pregnancy, third trimester (principal)
CPT/HCPCS: 81000; G0378

== ENCOUNTER 2017-09-23 21:59 | Observation (INO) | payer MEDICAID ==
[2017-09-23 22:25] VITALS: BP 106/66; PULSE 95
== END 2017-09-24 00:13 | disposition home or self-care (01) ==
LOC: OB 21:59 → UNDOADMOB 21:59 → UNDODISOB 09-24 00:13
PROVIDERS: ADMIT Family Medicine; ATTEND Family Medicine
DX: Z34.83 Encounter for supervision of other normal pregnancy, third trimester (principal)
CPT/HCPCS: 80307; G0378

== ENCOUNTER 2017-09-26 08:55 | Observation (INO) | payer MEDICAID ==
--- NOTE | 2017-09-26 11:40 | XRAY ---
Indication: Evaluate ADALI. 4 quadrant ADALI is 11.1 cm. This was previously 14.1 cm on September 19, 2017 exam.
[2017-09-26 13:42] VITALS: BP 116/70; PULSE 71
== END 2017-09-26 13:45 | disposition home or self-care (01) ==
LOC: OB 08:55
PROVIDERS: ADMIT Family Medicine; ATTEND Family Medicine
DX: Z34.83 Encounter for supervision of other normal pregnancy, third trimester (principal)
CPT/HCPCS: 76815; 80307; G0378

== ENCOUNTER 2017-10-10 00:53 | Observation (INO) | payer MEDICAID ==
[2017-10-10 01:18] VITALS: BP 115/71; PULSE 99
== END 2017-10-10 03:10 | disposition home or self-care (01) ==
LOC: OB 00:53
PROVIDERS: ADMIT Family Medicine; ATTEND Family Medicine
DX: Z34.83 Encounter for supervision of other normal pregnancy, third trimester (principal)
CPT/HCPCS: 80307; G0378

== ENCOUNTER 2017-10-14 17:27 | Observation (INO) | payer MEDICAID ==
[2017-10-14 18:27] VITALS: O2SAT 98
[2017-10-14 19:03] LABS: Amphetamine,Urine NEG. (NEGATIVE); Barbiturate,Urine NEG. (NEGATIVE); Benzodiazepine,Urine NEG. (NEGATIVE); Cocaine,Urine NEG. (NEGATIVE); Methadone,Urine NEG. (NEGATIVE); Opiate,Urine NEG. (NEGATIVE); PCP,Urine NEG. (NEGATIVE); THC,Urine NEG. (NEGATIVE)
[2017-10-14 21:31] VITALS: BP 118/71; PULSE 91
== END 2017-10-14 20:50 | disposition home or self-care (01) ==
LOC: OB 17:27
PROVIDERS: ADMIT Family Medicine; ATTEND Family Medicine
DX: Z34.83 Encounter for supervision of other normal pregnancy, third trimester (principal)
CPT/HCPCS: 80307; G0378

== ENCOUNTER 2017-10-16 18:08 | Inpatient (IN) | payer MEDICAID ==
[2017-10-16] MEDS ORDERED: Zofran 4 MG/2 ML VIAL IV PRN (19:18)
[2017-10-16] MEDS ORDERED: XYLOCAINE 1% HCL 20 ML MDV IJ PRN (19:18)
[2017-10-16] MEDS ORDERED: PITOCIN 30 UNITS/ LR 500 ML 500 ML IV SCH (19:30)
[2017-10-16 19:50] LABS: BASOPHIL % 0.2 % (0.0-0.4); Basophil (Absolute #) 0.02 (0-0.4); Eosinophil % 0.8 % (0.00-5.0); Eosinophil (Absolute #) 0.08 (0-0.5); Granulocyte Absolute (ANC) 7.63 (1.4-6.9); Granulocytes % 72.7 % (36.0-66.0); Hematocrit 36.1 % (35-47); Hemoglobin 12.3 gm/dl (12.0-16.0); Lymphocyte (Absolute #) 2.01 (1.0-4.6); Lymphocytes % 19.2 % (24.0-44.0); Mean Cell Volume 90.5 fl (78-100); Mean Corpuscular Hemoglobin 30.8 pg (26-32); Mean Corpuscular Hgb Concent. 34.1 g/dl (32-36); Monocyte (Absolute #) 0.75 (0.0-1.3); Monocytes % 7.1 % (0.0-12.0); Platelet Count 251 K/mm3 (150-450); Red Blood Count 3.99 M/mm3 (4.1-5.4); Red Cell Distribution Width 12.6 % (11.5-14.0); White Blood Count 10.5 K/mm3 (4.0-10.5)
[2017-10-16 20:15] LABS: Amphetamine,Urine NEG. (NEGATIVE); Barbiturate,Urine NEG. (NEGATIVE); Benzodiazepine,Urine NEG. (NEGATIVE); Cocaine,Urine NEG. (NEGATIVE); Methadone,Urine NEG. (NEGATIVE); Opiate,Urine NEG. (NEGATIVE); PCP,Urine NEG. (NEGATIVE); THC,Urine NEG. (NEGATIVE)
[2017-10-16] MEDS ORDERED: Lactated Ringers 1,000 ML IV ONE (21:57)
[2017-10-16] MEDS ORDERED: OB EPIDURAL NAROPIN/SUFENTANIL IN NACL EPIDURAL PRN (21:57)
[2017-10-16] MEDS ORDERED: Ephedrine Sulfate 50 MG/ML IV PRN (21:57)
[2017-10-16] MEDS: Lactated Ringers 1,000 ML IV SCH (22:29)
[2017-10-17] MEDS: Lactated Ringers 1,000 ML IV SCH (04:13)
[2017-10-17] MEDS ORDERED: Ambien 10 MG PO PRN (04:15)
[2017-10-17] MEDS ORDERED: TUCKS TP PRN (04:15)
[2017-10-17] MEDS ORDERED: Dermoplast Spray TP PRN (04:15)
[2017-10-17] MEDS ORDERED: LANSINOH 40 GM TOP PRN (04:15)
[2017-10-17] MEDS ORDERED: CORTISONE 1% CREAM TP PRN (04:15)
[2017-10-17] MEDS ORDERED: Mylicon 80MG PO PRN (04:15)
[2017-10-17] MEDS: MOTRIN 400 MG PO PRN ×2 (05:34→17:14)
[2017-10-17] MEDS: TYLENOL EXTRA STRENGTH 500 MG PO PRN (12:40)
[2017-10-17] MEDS: FERREX 150 PO SCH (14:58)
[2017-10-17] MEDS: Colace 100 MG PO SCH ×2 (14:58→23:15)
[2017-10-17] MEDS: NORCO 5/325 MG PO PRN ×2 (19:06→23:18)
[2017-10-18] MEDS: MOTRIN 400 MG PO PRN ×2 (02:39→19:33)
[2017-10-18] MEDS: TYLENOL EXTRA STRENGTH 500 MG PO PRN (04:56)
[2017-10-18 06:27] LABS: BASOPHIL % 0.2 % (0.0-0.4); Basophil (Absolute #) 0.03 (0-0.4); Eosinophil % 0.9 % (0.00-5.0); Eosinophil (Absolute #) 0.12 (0-0.5); Granulocyte Absolute (ANC) 8.73 (1.4-6.9); Granulocytes % 65.2 % (36.0-66.0); Hematocrit 33.1 % (35-47); Lymphocytes % 26.9 % (24.0-44.0); Mean Cell Volume 93.2 fl (78-100); Mean Corpuscular Hgb Concent. 33.2 g/dl (32-36); Mean Platelet Volume 11.4 fl (6-9.5); Monocyte (Absolute #) 0.91 (0.0-1.3); Monocytes % 6.8 % (0.0-12.0); Platelet Count 239 K/mm3 (150-450); Red Blood Count 3.55 M/mm3 (4.1-5.4); Red Cell Distribution Width 12.9 % (11.5-14.0); White Blood Count 13.4 K/mm3 (4.0-10.5)
[2017-10-18 06:41] LABS: Mean Corpuscular Hemoglobin 30.9 pg (26-32)
[2017-10-18] MEDS: FERREX 150 PO SCH (09:52)
[2017-10-18] MEDS: Colace 100 MG PO SCH ×2 (09:52→21:48)
[2017-10-18] MEDS: NORCO 5/325 MG PO PRN ×4 (09:53→23:30)
[2017-10-19] MEDS: MOTRIN 400 MG PO PRN ×2 (01:30→07:54)
[2017-10-19] MEDS: NORCO 5/325 MG PO PRN ×2 (03:32→07:53)
--- NOTE | 2017-10-19 07:16 | PCM.DS ---
Discharge Summary Date of Admission: 10/16/17 19:26 Admitting Physician: DAYNA CERVANTES Consults: Consults on Case 10/16/17 21:58 Notify Anesthesia Provider PRN 10/17/17 04:15 Notify Physician ROUTINE Primary Care Provider: DAYNA CERVANTES Allergies Allergies bee venom protein (honey bee) Allergy (Severe, Verified 10/16/17 20:33) Swelling clarithromycin [From Biaxin] Allergy (Verified 10/16/17 20:33) pt not sure what reaction is Hospital Summary - Hospital Course Hospital Course: Pt induced at term, 39w 3d, and delivered viable male . Has recovered steadily post . On norco and motrin for pain. Out of bed wihtout dizziness. - Vitals & Intake/Output Vital Signs: Vital Signs Temperature 97.8 F 10/19/17 02:00 Pulse Rate 67 10/19/17 02:00 Respiratory Rate 18 10/19/17 02:00 Blood Pressure 117/66 10/19/17 02:00 O2 Sat by Pulse Oximetry Intake & Output: Intake & Output 10/16/17 10/17/17 10/18/17 10/19/17 11:59 11:59 11:59 11:59 Intake Total 5298 1200 Output Total 800 Balance 4498 1200 Weight 82.1 kg - Lab Result Diagrams: 10/18/17 05:00 Micro Results-Entire Visit: Microbiology 10/16/17 00:05 Urine Culture - Final Catherized NO GROWTH Discharge Exam General Appearance: no apparent distress, alert Neurologic Exam: oriented x 3, cooperative Skin Exam: normal color, warm, dry, No rash Eye Exam: eyes nml inspection Neck Exam: normal inspection Respiratory Exam: normal breath sounds, lungs clear, No crackles/rales, No rhonchi, No wheezing Cardiovascular Exam: regular rate/rhythm, normal heart sounds, No murmur Gastrointestinal/Abdomen Exam: soft, other (fundus firm under umbilicus) Extremity Exam: No pedal edema, No swelling Final Diagnosis/Problem List - Final Discharge Diagnosis/Problem (1) Vaginal delivery Current Visit: Yes Status: Acute Assessment & Plan: PPD #2, doing great. Home with small amount norco and motrin. Rx for breast pump (breast and bottle feeding). - Discharge Disposition: Home, Self-Care Condition: Good Prescriptions: Continue Pnv No.118/Iron Fumarate/FA [ 19 Chewable Tablet] 2 tab PO DAILY Follow up with: DAYNA CERVANTES [Primary Care Provider] - 1 Week
[2017-10-19] MEDS: Colace 100 MG PO SCH (10:48)
[2017-10-19] MEDS: FERREX 150 PO SCH (10:48)
[2017-10-19 12:54] VITALS: BP 96/52; PULSE 81
== END 2017-10-19 12:30 | disposition home or self-care (01) | DRG 775 ==
LOC: MED SURG 18:08 → OBSVTOIN 19:26 → MED SURG 19:26 → OB 21:42 → MED SURG 10-18 22:07
PROVIDERS: ADMIT Family Medicine; ATTEND Family Medicine
PROC: 10E0XZZ Delivery of Products of Conception, External Approach (ICD-10-PCS; principal; 2017-10-16)
DX: O80 Encounter for full-term uncomplicated delivery (principal); Z3A.39 39 weeks gestation of pregnancy; Z37.0 Single live birth
CPT/HCPCS: 01967; 36415; 80307; 85025; 87086; G0378; J2590; J2795; A9270-GY

== ENCOUNTER 2018-09-01 06:16 | Inpatient (IN) | payer OTHER ==
[2018-09-01] MEDS ORDERED: PITOCIN 30 UNITS/ LR 500 ML 500 ML IV ONE (06:28)
[2018-09-01] MEDS ORDERED: Lactated Ringers 2,000 ML IV ONE (06:28)
[2018-09-01] MEDS: Lactated Ringers 1,000 ML IV SCH ×2 (06:35→07:36)
[2018-09-01] MEDS ORDERED: MORPHINE SULFATE 4 MG INJ IV ONE (07:07)
[2018-09-01] MEDS ORDERED: PITOCIN 30 UNITS/ LR 500 ML 500 ML IV SCH (08:00)
[2018-09-01 08:29] LABS: BASOPHIL % 0.1 % (0.0-0.4); Basophil (Absolute #) 0.02 (0-0.4); Eosinophil % 0.2 % (0.00-5.0); Eosinophil (Absolute #) 0.03 (0-0.5); Granulocyte Absolute (ANC) 17.65 (1.4-6.9); Granulocytes % 89.1 % (36.0-66.0); Hematocrit 37.3 % (35-47); Hemoglobin 12.4 gm/dl (12.0-16.0); Lymphocyte (Absolute #) 1.34 (1.0-4.6); Lymphocytes % 6.8 % (24.0-44.0); Mean Cell Volume 91.9 fl (78-100); Mean Corpuscular Hemoglobin 30.5 pg (26-32); Mean Corpuscular Hgb Concent. 33.2 g/dl (32-36); Mean Platelet Volume 10.7 fl (6-9.5); Monocyte (Absolute #) 0.76 (0.0-1.3); Monocytes % 3.8 % (0.0-12.0); Platelet Count 194 K/mm3 (150-450); Red Blood Count 4.06 M/mm3 (4.1-5.4); Red Cell Distribution Width 12.9 % (11.5-14.0); White Blood Count 19.8 K/mm3 (4.0-10.5)
[2018-09-01 09:49] LABS: Amphetamine,Urine NEGATIVE (NEGATIVE); Barbiturate,Urine NEGATIVE (NEGATIVE); Benzodiazepine,Urine NEGATIVE (NEGATIVE); Cocaine,Urine NEGATIVE (NEGATIVE); Methadone,Urine NEGATIVE (NEGATIVE); Opiate,Urine POSITIVE (NEGATIVE); PCP,Urine NEGATIVE (NEGATIVE); THC,Urine NEGATIVE (NEGATIVE)
[2018-09-01] MEDS ORDERED: Dulcolax 10 MG SUPP PR PRN (09:50)
[2018-09-01] MEDS ORDERED: TUCKS TP PRN (09:50)
[2018-09-01] MEDS ORDERED: CORTISONE 1% CREAM TP PRN (09:50)
[2018-09-01] MEDS ORDERED: LANSINOH 40 GM TOP PRN (09:50)
[2018-09-01] MEDS ORDERED: MOTRIN 400 MG PO PRN (09:50)
[2018-09-01] MEDS ORDERED: Dermoplast Spray TP PRN (09:50)
[2018-09-01] MEDS ORDERED: Mylicon 80MG PO PRN (09:50)
[2018-09-01] MEDS ORDERED: NORCO 5/325 MG PO PRN (09:50)
[2018-09-01] MEDS ORDERED: Ambien 10 MG PO PRN (09:50)
[2018-09-01] MEDS ORDERED: Anucort-HC SUPPOSITORY PR PRN (09:50)
[2018-09-01] MEDS ORDERED: FERREX 150 PO SCH (10:00)
[2018-09-01] MEDS ORDERED: Colace 100 MG PO SCH (10:00)
[2018-09-01] MEDS: TYLENOL EXTRA STRENGTH 500 MG PO PRN ×2 (10:35→16:59)
[2018-09-01 18:07] LABS: BASOPHIL % 0.1 % (0.0-0.4); Basophil (Absolute #) 0.01 (0-0.4); Eosinophil % 0.4 % (0.00-5.0); Eosinophil (Absolute #) 0.06 (0-0.5); Granulocyte Absolute (ANC) 11.52 (1.4-6.9); Granulocytes % 78.9 % (36.0-66.0); Hematocrit 34.2 % (35-47); Hemoglobin 11.5 gm/dl (12.0-16.0); Lymphocytes % 13.7 % (24.0-44.0); Mean Cell Volume 91.2 fl (78-100); Mean Corpuscular Hgb Concent. 33.6 g/dl (32-36); Mean Platelet Volume 10.4 fl (6-9.5); Monocytes % 6.9 % (0.0-12.0); Platelet Count 223 K/mm3 (150-450); Red Blood Count 3.75 M/mm3 (4.1-5.4); Red Cell Distribution Width 12.9 % (11.5-14.0); White Blood Count 14.6 K/mm3 (4.0-10.5)
[2018-09-01 18:08] LABS: Mean Corpuscular Hemoglobin 30.6 pg (26-32)
[2018-09-01 18:48] VITALS: BP 110/77; PULSE 70
--- NOTE | 2018-09-02 08:51 | SSS ---
ADMISSION DIAGNOSIS: Spontaneous labor. DISCHARGE DIAGNOSIS: PRECIPITOUS VAGINAL BREECH DELIVERY. CHIEF COMPLAINT: Active labor. HISTORY OF PRESENT ILLNESS: This patient is a 28 year-old 4, para 1-2-0-2, who arrived to labor and delivery in active labor with complete dilatation of the cervix early this morning. She is 29 weeks and 2 days estimated gestational age by last menstrual period. Of note, she had an ultrasound on 07/04/2018 where she was 22 weeks and 1 day with EDC of 11/06/2018 which would make her 30 plus weeks estimated gestational age. In any event she arrived with intact membranes, complete dilatation. She did report that she had discomfort and contractions since yesterday but did not seek care until this morning. She was waiting to see if she would become more symptomatic or painful prior to coming in. She, as expected, was in a large amount of pain on arrival with complete dilatation and contractions every three minutes. Presentation was noted to be breech but the patient deliver precipitously via breech vaginal delivery shortly after arrival. I was present. There were no complications during breech vaginal delivery. A viable male was delivered from the breech presentation with spontaneous respirations and crying after delivery. Oropharynx and nares were bulb suctioned free. The cord was clamped and cut. I handed him off to the awaiting respiratory therapy and nursery team. Cord blood was collected and the placenta was delivered via [place]. The patient had a firm uterus with minimal blood loss approximately 100 cc during the delivery. Prior to delivery when it was recognized that there was impending delivery of immature , the Intensive Care Unit from [facility] was notified and were en route prior to delivery. They arrived approximately 25 minutes after and they initiated care of the at that point. PAST MEDICAL HISTORY: The patient has a history of a 21 week delivery with demise, most recent delivery 10 months ago with a full term with no complications. According to the record, she was treated with vaginal progesterone during the . PHYSICAL EXAMINATION: The patient is alert and in no apparent distress. Pulse and blood pressure were within normal limits on arrival. GENERAL: She is alert, in pain related to labor, following delivery and in no apparent distress. She is comfortable. CVS: Regular rate and rhythm. No murmur. No gallop. No rub. RESPIRATORY: Clear to auscultation bilaterally. ABDOMEN: Soft. Fundus is firm. Lochia is minimal. EXTREMITIES: No clubbing. No cyanosis. No edema. SKIN: [place], warm and dry. NEUROLOGIC: Moves all extremities equally. No gross focal neurological deficits are present. LAB DATA AND TESTS: There were no labs completed prior to precipitous delivery. labs: Blood type is A-positive, antibody screen negative. Hepatitis-B surface antigen was negative. RPR was nonreactive. HIV negative. Gonorrhea and Chlamydia were initially negative. TSH was within normal range. Hep-C antibody was negative. Anatomy ultrasound was unremarkable. ASSESSMENT: This is a 28 year-old 4, para 1-2-0-2 at 29 weeks and 2 days estimated gestational age by last menstrual period, who presented in breech presentation with precipitous vaginal delivery. Her premature infant is being transferred to the nearest Intensive Care Unit at this time and they are present on the floor and have initiated care of the . Patient had no complications and will be monitored at this time. I did discuss with her on arrival that she was full dilatation and there was no means to prevent delivery at that point and discussed the need for transfer and inability to transfer her at that point. In light of the early gestational age and previous gravity and parity, I did not feel as though there was time to get a surgery team in for primary section due to presentation and felt that breech delivery was reasonable due to early gestational age.
== END 2018-09-01 18:45 | disposition home or self-care (01) | DRG 807 ==
LOC: OB 06:16 → OBSVTOIN 06:16
PROVIDERS: ADMIT Family Medicine; ATTEND Family Medicine
PROC: 10E0XZZ Delivery of Products of Conception, External Approach (ICD-10-PCS; principal; 2018-09-01)
DX: O32.1XX0 Maternal care for breech presentation, not applicable or unspecified (principal); Z37.0 Single live birth; Z3A.29 29 weeks gestation of pregnancy
CPT/HCPCS: 36415; 80307; 85025; G0378; J2270; J2590; A9270-GY

== ENCOUNTER → 2018-12-05 | Day surgery (SDC) | payer OTHER ==
--- NOTE | 2018-12-02 10:10 | HP ---
DATE OF SURGERY: 12/05/2018 ADMISSION DIAGNOSIS: Undesired fertility. ANTICIPATED PROCEDURE: Bilateral tubal ligation, look at ovaries for possible ruptured cyst. PAST MEDICAL HISTORY: ALLERGIES: BEE VENOM, BIAXIN. MEDICATIONS: See list. PAST SURGICAL HISTORY: None. SOCIAL HISTORY: Half pack per day, ETOH negative. FAMILY HISTORY: Negative. REVIEW OF SYSTEMS: Heart murmur. PHYSICAL EXAMINATION: VITAL SIGNS: Normal. CHEST: Clear. COR: Regular. ABDOMEN: No palpable organomegaly or mass. IMPRESSION: Undesired fertility and also possible ovarian cyst. PLAN: Tubal ligation and inspection possible rupture of ovarian cyst.
[~2018-12-05] MED LIST: BRIDION 200MG/2ML IV ONE; DIPRIVAN 200 MG/20 ML IV ONE; Decadron 4 MG INJ IV ONE; Lactated Ringers 1,000 ML IV ONE; Lactated Ringers 1,000 ML IV SCH; MEFOXIN 2 GM PREMIX** 2 GM/50 ML ML IV ONE; Quelicin Fliptop 200 MG/10 ML IV ONE; SUBLIMAZE 100 MCG/2 ML IV ONE; Sensorcaine 0.25% 10 ML ONE; TORAdol 30 mg Injection IV ONE; TORAdol 30 mg Injection ONE; Zemuron 100 MG/10 ML IV ONE; Zofran 4 MG/2 ML VIAL IV ONE; Zofran 4 MG/2 ML VIAL ONE
--- NOTE | 2018-12-05 13:20 | OP ---
SURGERY DATE/TIME: 12/05/2018 1231 PREOPERATIVE DIAGNOSIS: Undesired fertility. Multiparity. POSTOPERATIVE DIAGNOSIS: Undesired fertility. Multiparity. PROCEDURE: Bilateral tubal ligation. SURGEON: Alonzo Aldridge M.D. ANESTHESIA: General. COMPLICATIONS: None. CONDITION: Stable. INDICATION: The patient desiring sterilization. DESCRIPTION OF PROCEDURE: Taken to surgery. General anesthetic. Routine prep and drape. Veress needle inserted at the umbilicus. On inspection the uterus was normal size and the left and right ovaries had normal functional, small cyst but nothing that required any correction. There was no endometriosis. There was a teaspoon of fluid in the cul-de-sac that was suctioned. Left salpinx addressed first. Junction of the proximal middle third a 2 cm section transmurally coagulated until resistance was complete. This was also performed on the right side and then uterus lightly tipped up and both of these structures were traced back out to the fimbria. The meso-ovarian pedicle both left and right were identified. The tube with the mid-section out on both left and right identified. The round ligament anteriorly was identified both on left and right. 5 ports were used. Skin only was closed with 4-0 Vicryl and glue. The patient tolerated the procedure satisfactorily.
[2018-12-05 13:53] VITALS: O2SAT 99
[2018-12-05 13:59] LABS: Appearance CLEAR (CLEAR); Bilirubin NEGATIVE (NEGATIVE); Blood NEGATIVE Ery/ul (0-5); Glucose NEGATIVE (NEGATIVE); Ketones SMALL (NEGATIVE); Leukocyte Esterase NEGATIVE (NEGATIVE); Mucus MODERATE /HPF (NEGATIVE); Nitrite NEGATIVE (NEGATIVE); Protein,Urine Dip NEGATIVE (Negative); Specific Gravity 1.025 (1.005-1.025); Urobilinogen 4 mg/dL (0-1)
[2018-12-05 14:03] VITALS: BP 139/82; PULSE 80
== END | disposition home or self-care (01) ==
LOC: SDC 11:10
PROVIDERS: ATTEND Surgery
DX: Z30.2 Encounter for sterilization (principal); N83.209 Unspecified ovarian cyst, unspecified side
CPT/HCPCS: 81001; 84703; 87086; J0330; J0694; J1100; J1885; J2405; J2704; J3010

== ENCOUNTER 2019-05-26 06:59 | Emergency (ER) | payer MEDICAID, OTHER ==
[2019-05-26] MEDS ORDERED: Sodium Chloride 0.9% 1000 ML 1,000 ML IV STA (07:14)
[2019-05-26] MEDS ORDERED: TORAdol 30 mg Injection IV ONE (07:14)
[2019-05-26] MEDS ORDERED: BENADRYL 50 MG/ML IV ONE (07:14)
[2019-05-26] MEDS ORDERED: Reglan 10 MG/2 ML IV ONE (07:14)
[2019-05-26] MEDS ORDERED: TORAdol 30 mg Injection ONE (07:18)
[2019-05-26] MEDS ORDERED: BENADRYL 50 MG/ML ONE (07:18)
[2019-05-26] MEDS ORDERED: Reglan 10 MG/2 ML ONE (07:19)
[2019-05-26] MEDS ORDERED: Sodium Chloride 0.9% 1000 ML 1,000 ML ONE (07:19)
--- NOTE | 2019-05-26 07:21 | ERPHSYRPT ---
- History of Present Illness Time Seen by Provider: 05/26/19 07:08 Source: patient Exam Limitations: no limitations Patient Subjective Stated Complaint: Pt states "I am very notorious for migraines. I have had a migraine all night and vomiting." Triage Nursing Assessment: Pt presented alert and oriented x 3, skin pwd. Pt ambulates with an upright steady gait, able to speak in clear full sentences. Pt in no apparent respiratory distress. Physician History: C/o bifrontal headaches, "throbbing", migraine headaches since last night, vomiting, and diarrhea several times, denies fever, visual changes, other complaints, except mild cold symptoms, nasal congestion, cough, no sore throat, chest pain, SOB, other complaints. Timing/Duration: yesterday Quality: throbbing Head Pain Location: frontal Severity of Pain-Max: severe Severity of Pain-Current: severe Recent Head Trauma: no recent headache/trauma Modifying Factors: Improves With: exposure to light Associated Symptoms: nausea/vomiting, nasal congestion, nasal drainage, sensitive to light Previous symptoms: same symptoms as today Allergies/Adverse Reactions: bee venom protein (honey bee) Allergy (Severe, Verified 12/05/18 11:41) Swelling clarithromycin [From Biaxin] Allergy (Verified 12/05/18 11:41) pt not sure what reaction is Hx Tetanus, Diphtheria Vaccination/Date Given: Yes Hx Influenza Vaccination/Date Given: No Hx Pneumococcal Vaccination/Date Given: No Immunizations Up to Date: Yes - Review of Systems Constitutional: No Symptoms Eyes: No Symptoms Ears, Nose, & Throat: Nose Congestion Respiratory: Cough Cardiac: No Symptoms Abdominal/Gastrointestinal: Nausea, Vomiting, Diarrhea Genitourinary Symptoms: No Symptoms Musculoskeletal: No Symptoms Skin: No Symptoms Neurological: Headache Psychological: No Symptoms All Other Systems: Reviewed and Negative - Past Medical History Pertinent Past Medical History: Yes Neurological History: Migraines ENT History: No Pertinent History Cardiac History: Congenital Heart Disease, Congestive Heart Failure, Other Respiratory History: No Pertinent History Endocrine Medical History: No Pertinent History Musculoskeletal History: No Pertinent History GI Medical History: Irritable Bowel History: No Pertinent History Psycho-Social History: Anxiety, Panic Disorder Female Reproductive Disorders: Other Other Medical History: CHD, heart murmur; congenital septal defect; abnormal PAP. pt denies any new history - Past Surgical History Past Surgical History: Yes Neuro Surgical History: No Pertinent History Cardiac: No Pertinent History Respiratory: No Pertinent History Gastrointestinal: No Pertinent History Genitourinary: No Pertinent History Musculoskeletal: No Pertinent History Female Surgical History: No Pertinent History Other Surgical History: SURGERY ON FOREHEAD, pt states R eye surgery at 7 years old. sinus surgery to removed "BB" that was "snuffed" up her nose as a small child. denies any other surgeries. tubal - Social History Smoking Status: Current every day smoker How long have you smoked: years Exposure to second hand smoke: Yes Drug Use: none Patient Lives Alone: No - Female History Hx Last Menstrual Period: 05/15/2019 Hx Now: No - Nursing Vital Signs Nursing Vital Signs: Initial Vital Signs Temperature 97.8 F 05/26/19 07:02 Pulse Rate 84 05/26/19 07:02 Respiratory Rate 16 05/26/19 07:02 Blood Pressure 124/89 05/26/19 07:02 O2 Sat by Pulse Oximetry 100 05/26/19 07:02 Pain Scale Pain Intensity 4 - Physical Exam General Appearance: no apparent distress Eye Exam: PERRL/EOMI, eyes nml inspection Ears, Nose, Throat Exam: normal ENT inspection, pharynx normal, moist mucous membranes Neck Exam: normal inspection, non-tender, supple, No carotid bruit, No JVD Respiratory Exam: normal breath sounds, lungs clear, airway intact Cardiovascular Exam: regular rate/rhythm, normal heart sounds, normal peripheral pulses, capillary refill <2 sec, No murmur Gastrointestinal/Abdominal Exam: normal bowel sounds, No tenderness, No distention, No mass, No guarding, No rebound, No organomegaly Back Exam: normal inspection, No CVA tenderness, No vertebral tenderness Extremity Exam: normal inspection Mental Status Exam: alert, oriented x 3, 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 Exam: normal speech, PERRL Coordination/Gait Exam: normal gait Motor/Sensory Exam: no motor deficit DTR Exam: bicep (R): 2+, bicep (L): 2+, knee (R): 2+, knee (L): 2+, ankle (R): 2 +, ankle (L): 2+ Skin Exam: normal color, warm, dry, No rash, No petechiae, No jaundice, No cyanosis, No diaphoresis Lymphatic Exam: No adenopathy SpO2 Interpretation: normal SpO2: 100 O2 Delivery: Room Air - Course Nursing assessment & vital signs reviewed: Yes Ordered Tests: Active Orders 24 hr Category Date Time Status IV Insertion STAT Care 05/26/19 07:14 Active CBC W DIFF Stat Lab 05/26/19 07:28 Completed CMP Stat Lab 05/26/19 07:28 Completed CULTURE,URINE Stat Lab 05/26/19 07:30 Received HCG,QUALITATIVE URINE Stat Lab 05/26/19 07:30 Completed UA W/RFX UR CULTURE Stat Lab 05/26/19 07:30 Completed Urine Triage Profile Stat Lab 05/26/19 07:30 Completed Medication Summary Discontinued Medications Generic Name Dose Route Start Last Admin Trade Name Justiceq PRN Reason Stop Dose Admin Diphenhydramine HCl 25 mg 05/26/19 07:14 05/26/19 07:24 Benadryl 50 Mg/Ml IV 05/26/19 07:15 25 mg STAT ONE Administration Diphenhydramine HCl Confirm 05/26/19 07:18 Benadryl 50 Mg/Ml Administered 05/26/19 07:19 Dose 50 mg .ROUTE .STK-MED ONE Fentanyl Citrate 50 mcg 05/26/19 08:21 05/26/19 08:30 Sublimaze 100 Mcg/2 Ml IV 05/26/19 08:22 50 mcg STAT ONE Administration Fentanyl Citrate Confirm 05/26/19 08:26 Sublimaze 100 Mcg/2 Ml Administered 05/26/19 08:27 Dose 100 mcg .ROUTE .STK-MED ONE Sodium Chloride 1,000 mls @ 999 mls/hr 05/26/19 07:14 05/26/19 08:40 Sodium Chloride 0.9% 1000 Ml IV 05/26/19 08:14 Infused .Q1H1M STA Infusion Sodium Chloride Confirm 05/26/19 07:19 Sodium Chloride 0.9% 1000 Ml Administered 05/26/19 07:20 Dose 1,000 mls @ ud .ROUTE .STK-MED ONE Ketorolac Tromethamine 30 mg 05/26/19 07:14 05/26/19 07:24 Toradol 30 Mg Injection IV 05/26/19 07:15 30 mg STAT ONE Administration Ketorolac Tromethamine Confirm 05/26/19 07:18 Toradol 30 Mg Injection Administered 05/26/19 07:19 Dose 30 mg .ROUTE .STK-MED ONE Metoclopramide HCl 10 mg 05/26/19 07:14 05/26/19 07:24 Reglan 10 Mg/2 Ml IV 05/26/19 07:15 10 mg STAT ONE Administration Metoclopramide HCl Confirm 05/26/19 07:19 Reglan 10 Mg/2 Ml Administered 05/26/19 07:20 Dose 10 mg .ROUTE .STK-MED ONE Lab/Rad Data: Laboratory Result Diagrams 05/26/19 07:28 05/26/19 07:28 Laboratory Results 05/26/19 05/26/19 05/26/19 Range/Units 07:30 07:30 07:30 WBC (4.0-10.5) K/mm3 RBC (4.1-5.4) M/mm3 Hgb (12.0-16.0) gm/dl Hct (35-47) % MCV (78-100) fl MCH (26-32) pg MCHC (32-36) g/dl RDW (11.5-14.0) % Plt Count (150-450) K/mm3 MPV (6-9.5) fl Gran % (36.0-66.0) % Eos # (Auto) (0-0.5) Absolute Lymphs (auto) (1.0-4.6) Absolute Monos (auto) (0.0-1.3) Lymphocytes % (24.0-44.0) % Monocytes % (0.0-12.0) % Eosinophils % (0.00-5.0) % Basophils % (0.0-0.4) % Absolute Granulocytes (1.4-6.9) Basophils # (0-0.4) Sodium (137-145) mmol/L Potassium (3.5-5.1) mmol/L Chloride (98-107) mmol/L Carbon Dioxide (22-30) mmol/L Anion Gap (5-15) MEQ/L BUN (7-17) mg/dL Creatinine (0.52-1.04) mg/dL Estimated GFR ML/MIN Glucose (74-106) mg/dL Calcium (8.4-10.2) mg/dL Total Bilirubin (0.2-1.3) mg/dL AST (14-36) U/L ALT (0-35) U/L Alkaline Phosphatase (38-126) U/L Serum Total Protein (6.3-8.2) g/dL Albumin (3.5-5.0) g/dL Urine Color [place] (YELLOW) Urine Appearance SLIGHTLY CLOUDY (CLEAR) Urine pH 5.0 (5-6) Ur Specific [place] 1.030 (1.005-1.025) Urine Protein 30 (Negative) Urine Ketones TRACE (NEGATIVE) Urine Blood NEGATIVE (0-5) Michael/ul Urine Nitrite NEGATIVE (NEGATIVE) Urine Bilirubin SMALL (NEGATIVE) Urine Urobilinogen 2 (0-1) mg/dL Ur Leukocyte Esterase NEGATIVE (NEGATIVE) Urine WBC (Auto) 3-5 (0-5) /HPF Urine RBC (Auto) 0-2 (0-2) /HPF U Epithel Cells (Auto) RARE (FEW) /HPF Urine Bacteria (Auto) RARE (NEGATIVE) /HPF Amorphous Crystals FEW (NEGATIVE) /HPF Urine Mucus (Auto) MANY (NEGATIVE) /HPF Urine Culture Reflexed YES (NO) Urine Glucose NEGATIVE (NEGATIVE) mg/dL Urine HCG, Qual NEGATIVE (Negative) Urine Opiates Level NEGATIVE (NEGATIVE) Ur Methadone NEGATIVE (NEGATIVE) Urine Barbiturates NEGATIVE (NEGATIVE) Ur Phencyclidine (PCP) NEGATIVE (NEGATIVE) Urine Amphetamine NEGATIVE (NEGATIVE) U Benzodiazepine Level NEGATIVE (NEGATIVE) Urine Cocaine NEGATIVE (NEGATIVE) Urine Marijuana (THC) NEGATIVE (NEGATIVE) 05/26/19 05/26/19 Range/Units 07:28 07:28 WBC 9.0 (4.0-10.5) K/mm3 RBC 4.90 (4.1-5.4) M/mm3 Hgb 14.9 (12.0-16.0) gm/dl Hct 44.3 (35-47) % MCV 90.4 (78-100) fl MCH 30.4 (26-32) pg MCHC 33.6 (32-36) g/dl RDW 14.5 H (11.5-14.0) % Plt Count 265 (150-450) K/mm3 MPV 10.6 H (6-9.5) fl Gran % 67.4 H (36.0-66.0) % Eos # (Auto) 0.11 (0-0.5) Absolute Lymphs (auto) 2.07 (1.0-4.6) Absolute Monos (auto) 0.71 (0.0-1.3) Lymphocytes % 23.1 L (24.0-44.0) % Monocytes % 7.9 (0.0-12.0) % Eosinophils % 1.2 (0.00-5.0) % Basophils % 0.4 (0.0-0.4) % Absolute Granulocytes 6.02 (1.4-6.9) Basophils # 0.04 (0-0.4) Sodium 145 (137-145) mmol/L Potassium 3.4 L (3.5-5.1) mmol/L Chloride 110 H (98-107) mmol/L Carbon Dioxide 26 (22-30) mmol/L Anion Gap 11.8 (5-15) MEQ/L BUN 9 (7-17) mg/dL Creatinine 0.66 (0.52-1.04) mg/dL Estimated GFR > 60.0 ML/MIN Glucose 104 (74-106) mg/dL Calcium 9.3 (8.4-10.2) mg/dL Total Bilirubin 1.00 (0.2-1.3) mg/dL AST 29 (14-36) U/L ALT 22 (0-35) U/L Alkaline Phosphatase 63 (38-126) U/L Serum Total Protein 7.2 (6.3-8.2) g/dL Albumin 4.2 (3.5-5.0) g/dL Urine Color (YELLOW) Urine Appearance (CLEAR) Urine pH (5-6) Ur Specific [place] (1.005-1.025) Urine Protein (Negative) Urine Ketones (NEGATIVE) Urine Blood (0-5) Michael/ul Urine Nitrite (NEGATIVE) Urine Bilirubin (NEGATIVE) Urine Urobilinogen (0-1) mg/dL Ur Leukocyte Esterase (NEGATIVE) Urine WBC (Auto) (0-5) /HPF Urine RBC (Auto) (0-2) /HPF U Epithel Cells (Auto) (FEW) /HPF Urine Bacteria (Auto) (NEGATIVE) /HPF Amorphous Crystals (NEGATIVE) /HPF Urine Mucus (Auto) (NEGATIVE) /HPF Urine Culture Reflexed (NO) Urine Glucose (NEGATIVE) mg/dL Urine HCG, Qual (Negative) Urine Opiates Level (NEGATIVE) Ur Methadone (NEGATIVE) Urine Barbiturates (NEGATIVE) Ur Phencyclidine (PCP) (NEGATIVE) Urine Amphetamine (NEGATIVE) U Benzodiazepine Level (NEGATIVE) Urine Cocaine (NEGATIVE) Urine Marijuana (THC) (NEGATIVE) - Progress Progress: improved Air Movement: good Progress Note: 05/26/19 08:55 Pt states, she feels better after IV saline bolus, Toradol, 30 mg, Reglan 10 mg , Benadryl 25 mg and Fentanyl 50 mcg, afebrile, headaches and nasuea resolved, advised about our lab findings and given L-Lyte 25 meq PO, discharged home to rest x 2-3 days, drink plenty of fluids, and follow up with her physician in 2- 3 days, she was started on Bactrim DS BID x 3 days. Blood Culture(s) Obtained: No Antibiotics given: Yes, No Counseled pt/family regarding: lab results, diagnosis, need for follow-up - Departure Departure Disposition: Home Clinical Impression: Urinary tract bacterial infections Headache Qualifiers: Headache type: unspecified Headache chronicity pattern: acute headache Intractability: not intractable Qualified Code(s): R51 - Headache Condition: Stable Critical Care Time: No Referrals: DAYNA CERVANTES [Primary Care Provider] - Instructions: Headache, Adult (DC), Urinary Tract Infection, Adult (DC) Additional Instructions: Rest x 2-3 days, drink plenty of fluids, and follow up with your physician in 2- 3 days, return if severe headaches, vomiting, lethargy, fever > 102 F! Prescriptions: Ondansetron ODT 4 MG [Zofran Odt 4 mg] 4 mg PO Q6H PRN PRN #10 tab.rapdis PRN Reason: Nausea/Vomiting Butalbital/Aspirin/Caffeine [[id number] Cap] 1 each PO TID PRN #10 capsule PRN Reason: Pain, Fever, Headache Sulfamethoxazole/Trimethoprim [Bactrim Ds Tablet] 1 each PO BID #6 tablet
[2019-05-26 07:42] LABS: BASOPHIL % 0.4 % (0.0-0.4); Basophil (Absolute #) 0.04 (0-0.4); Eosinophil % 1.2 % (0.00-5.0); Eosinophil (Absolute #) 0.11 (0-0.5); Granulocyte Absolute (ANC) 6.02 (1.4-6.9); Granulocytes % 67.4 % (36.0-66.0); Hematocrit 44.3 % (35-47); Hemoglobin 14.9 gm/dl (12.0-16.0); Lymphocyte (Absolute #) 2.07 (1.0-4.6); Lymphocytes % 23.1 % (24.0-44.0); Mean Cell Volume 90.4 fl (78-100); Mean Corpuscular Hemoglobin 30.4 pg (26-32); Mean Corpuscular Hgb Concent. 33.6 g/dl (32-36); Mean Platelet Volume 10.6 fl (6-9.5); Monocyte (Absolute #) 0.71 (0.0-1.3); Monocytes % 7.9 % (0.0-12.0); Platelet Count 265 K/mm3 (150-450); Red Cell Distribution Width 14.5 % (11.5-14.0)
[2019-05-26 07:45] LABS: Appearance SLIGHTLY CLOUDY (CLEAR); Bacteria RARE /HPF (NEGATIVE); Bilirubin SMALL (NEGATIVE); Blood NEGATIVE Ery/ul (0-5); Epithelial Cells RARE /HPF (FEW); Glucose NEGATIVE (NEGATIVE); Ketones TRACE (NEGATIVE); Leukocyte Esterase NEGATIVE (NEGATIVE); Mucus MANY /HPF (NEGATIVE); Nitrite NEGATIVE (NEGATIVE); Protein,Urine Dip 30 (Negative); RBC 0-2 /HPF (0-2); Urobilinogen 2 mg/dL (0-1)
[2019-05-26 07:47] LABS: ALBUMIN 4.2 g/dL (3.5-5.0); ALKALINE PHOSPHATASE 63 U/L (38-126); ANION GAP 11.8 MEQ/L (5-15); BLOOD UREA NITROGEN 9 mg/dL (7-17); CHLORIDE 110 mmol/L (98-107); Calcium 9.3 mg/dL (8.4-10.2); Carbon Dioxide 26 mmol/L (22-30); Creatinine 1 0.66 mg/dL (0.52-1.04); Glucose 104 mg/dL (74-106); Potassium 3.4 mmol/L (3.5-5.1); SGOT/AST 29 U/L (14-36); SGPT/ALT 22 U/L (0-35); SODIUM 145 mmol/L (137-145); Total Protein 7.2 g/dL (6.3-8.2)
[2019-05-26 07:50] LABS: Amourphous Crystal FEW /HPF (NEGATIVE)
[2019-05-26 07:56] LABS: Amphetamine,Urine NEGATIVE (NEGATIVE); Barbiturate,Urine NEGATIVE (NEGATIVE); Benzodiazepine,Urine NEGATIVE (NEGATIVE); Cocaine,Urine NEGATIVE (NEGATIVE); Methadone,Urine NEGATIVE (NEGATIVE); Opiate,Urine NEGATIVE (NEGATIVE); PCP,Urine NEGATIVE (NEGATIVE); THC,Urine NEGATIVE (NEGATIVE)
[2019-05-26] MEDS ORDERED: SUBLIMAZE 100 MCG/2 ML IV ONE (08:21)
[2019-05-26] MEDS ORDERED: SUBLIMAZE 100 MCG/2 ML ONE (08:26)
[2019-05-26 08:52] VITALS: BP 99/69; PULSE 72
[2019-05-26] MEDS ORDERED: K-LYTE 25 MEQ PO ONE (08:54)
[2019-05-26] MEDS ORDERED: K-LYTE 25 MEQ ONE (08:57)
[2019-05-26 09:06] VITALS: O2SAT 100
== END 2019-05-26 09:55 | disposition home or self-care (01) ==
LOC: ED 06:59
DX: N39.0 Urinary tract infection, site not specified (principal); B96.89 Other specified bacterial agents as the cause of diseases classified elsewhere; R51 Headache
CPT/HCPCS: 36000; 36415; 80053; 80307; 81001; 84703; 85025; 87086; 96360; 96374; 96375; 99284; J1200; J1885; J3010; A9270-GY

== ENCOUNTER 2020-11-13 14:54 | Emergency (ER) | payer OTHER ==
--- NOTE | 2020-11-13 14:56 | ERPHSYRPT ---
- History of Present Illness Time Seen by Provider: 11/13/20 14:56 Source: patient Exam Limitations: no limitations Physician History: This is a 30-year-old white female who approximately 1 week ago slipped onto her lower back and her knees were on the edge of a bathtub. She had pain ever since. However today her pain was much worse. She has no urinary tract symptoms. Patient wanted evaluation to make sure she did not have any fractures. She is not getting any relief with [id number] medications. Patient states that she is definitely not . Timing/Duration: week(s) (1) Method of Injury: fall Quality: sharp, stabbing Back Pain Location: lumbar spine (Level), paraspinous muscles (Bilateral) Severity of Pain-Max: moderate Severity of Pain-Current: moderate Modifying Factors: Improves With: movement, other (Hurts to lie flat) Associated Symptoms: lower back pain, No loss of bowel control, No constipation, No nausea, No vomiting, No problems urinating Previous symptoms: no prior history Allergies/Adverse Reactions: bee venom protein (honey bee) Allergy (Severe, Verified 11/13/20 15:14) Swelling clarithromycin [From Biaxin] Allergy (Verified 11/13/20 15:14) pt not sure what reaction is Hx Tetanus, Diphtheria Vaccination/Date Given: Yes Hx Influenza Vaccination/Date Given: No Hx Pneumococcal Vaccination/Date Given: No Travel Risk - International Travel Have you traveled outside of the country in past 3 weeks: No - Coronavirus Screening Are you exhibiting any of the following symptoms?: No Close contact with a COVID-19 positive Pt in past 14-21 Days: No - Review of Systems Constitutional: No Symptoms Eyes: No Symptoms Ears, Nose, & Throat: No Symptoms Respiratory: No Symptoms Cardiac: No Symptoms Abdominal/Gastrointestinal: No Symptoms Genitourinary Symptoms: No Symptoms Musculoskeletal: Fall, Injury (Lower back) Skin: No Symptoms Neurological: No Symptoms Psychological: No Symptoms Endocrine: No Symptoms Hematologic/Lymphatic: No Symptoms Immunological/Allergic: No Symptoms All Other Systems: Reviewed and Negative - Past Medical History Pertinent Past Medical History: Yes Neurological History: Migraines ENT History: No Pertinent History Cardiac History: Congenital Heart Disease, Congestive Heart Failure, Other Respiratory History: No Pertinent History Endocrine Medical History: No Pertinent History Musculoskeletal History: No Pertinent History GI Medical History: Irritable Bowel History: No Pertinent History Psycho-Social History: Anxiety, Panic Disorder Female Reproductive Disorders: Other Other Medical History: CHD, heart murmur; congenital septal defect; abnormal PAP. pt denies any new history - Past Surgical History Past Surgical History: Yes Neuro Surgical History: No Pertinent History Cardiac: No Pertinent History Respiratory: No Pertinent History Gastrointestinal: No Pertinent History Genitourinary: No Pertinent History Musculoskeletal: No Pertinent History Female Surgical History: No Pertinent History Other Surgical History: SURGERY ON FOREHEAD, pt states R eye surgery at 7 years old. sinus surgery to removed "BB" that was "snuffed" up her nose as a small child. denies any other surgeries. tubal - Social History Smoking Status: Current every day smoker How long have you smoked: years Exposure to second hand smoke: Yes Drug Use: none Patient Lives Alone: No - Nursing Vital Signs Nursing Vital Signs: Initial Vital Signs Temperature 98.0 F 11/13/20 15:15 Pulse Rate 96 H 11/13/20 15:15 Respiratory Rate 18 11/13/20 15:15 Blood Pressure 124/83 11/13/20 15:15 O2 Sat by Pulse Oximetry 100 11/13/20 15:15 Pain Scale Pain Intensity 8 - Physical Exam General Appearance: mild distress, alert, anxiety Eye Exam: PERRL/EOMI, eyes nml inspection Ears, Nose, Throat Exam: normal ENT inspection, moist mucous membranes Neck Exam: normal inspection, non-tender, supple, full range of motion Respiratory Exam: airway intact, No chest tenderness, No respiratory distress Pelvic Exam: not done Rectal Exam: not done Back Exam: normal inspection, normal range of motion, muscle spasm (Bilateral paraspinous muscles lumbar spine level), No CVA tenderness, No vertebral tenderness Extremity Exam: normal inspection, normal range of motion, pelvis stable Neurologic Exam: alert, oriented x 3, cooperative, institutional commodity analyst II-XII nml as tested, normal mood/affect, nml cerebellar function, nml station & gait, sensation nml Skin Exam: normal color, warm, dry Lymphatic Exam: No adenopathy SpO2 Interpretation: normal O2 Delivery: Room Air - Course Nursing assessment & vital signs reviewed: Yes Ordered Tests: Active Orders 24 hr Category Date Time Status LUMBAR LIMITED (2 OR 3 VIEWS) Stat Exams 11/13/20 15:28 Taken - Progress Progress: pain not gone completely, re-examined Progress Note: 11/13/20 16:25 Lumbar spine series shows no acute fracture or subluxation Counseled pt/family regarding: diagnosis, need for follow-up, rad results - Departure Departure Disposition: Home Clinical Impression: Back pain Condition: Stable Critical Care Time: No Referrals: DAYNA MOORE [Primary Care Provider] - Additional Instructions: Follow-up with your primary care physician for further management. Prescriptions: Carisoprodol 350 mg [Soma 350 mg] 350 mg PO Q8H PRN PRN #10 tablet PRN Reason: Muscle Spasms Prednisone 10 mg [Deltasone 10 mg] 10 mg PO TID #12 tablet
[2020-11-13] MEDS ORDERED: Cyclobenzaprine 10 MG PO ONE (16:32)
[2020-11-13] MEDS ORDERED: PERCOCET TABLET 5/325MG PO STA (16:32)
[2020-11-13] MEDS ORDERED: Cyclobenzaprine 10 MG ONE (16:41)
[2020-11-13] MEDS ORDERED: NORCO 5/325 MG ONE (16:41)
[2020-11-13] MEDS ORDERED: PERCOCET TABLET 5/325MG ONE (16:46)
[2020-11-13 16:53] VITALS: BP 116/75; PULSE 78; O2SAT 98
--- NOTE | 2020-11-13 18:41 | XRAY ---
Indication: Low back pain 3 days. Comparison: None 3 view lumbar spine demonstrates 5 lumbar segments in normal alignment with mild L5-S1 degenerative facet hypertrophy right greater than left. No other bony, articular, or soft tissue abnormalities.
== END 2020-11-13 17:04 | disposition home or self-care (01) ==
LOC: ED 14:54
DX: M54.5 Low back pain (principal); W01.198A Fall on same level from slipping, tripping and stumbling with subsequent striking against other object, initial encounter
CPT/HCPCS: 72100; 99283; A9270-GY

== ENCOUNTER 2021-08-06 20:25 | Emergency (ER) | payer OTHER ==
[2021-08-06] MEDS ORDERED: BABY ASPIRIN 81 MG CHEW PO ONE (20:33)
[2021-08-06] MEDS ORDERED: TORAdol 30 mg Injection IV ONE (20:57)
[2021-08-06] MEDS ORDERED: TORAdol 30 mg Injection ONE (20:58)
[2021-08-06 21:04] LABS: Absolute Neutrophil Ct (ANC) 6.39 (1.4-6.9); BASOPHIL % 0.3 % (0.0-0.4); Basophil (Absolute #) 0.03 (0-0.4); Eosinophil % 0.7 % (0.00-5.0); Eosinophil (Absolute #) 0.08 (0-0.5); Hematocrit 43.2 % (35-47); Hemoglobin 14.5 gm/dl (12.0-16.0); Lymphocyte (Absolute #) 3.48 (1.0-4.6); Mean Cell Volume 95.4 fl (78-100); Mean Corpuscular Hgb Concent. 33.6 g/dl (32-36); Mean Platelet Volume 10.7 fl (7.5-11.0); Monocyte (Absolute #) 0.89 (0.0-1.3); Monocytes % 8.2 % (0.0-12.0); Neutrophil % 58.8 % (36.0-66.0); Platelet Count 279 K/mm3 (150-450); Red Blood Count 4.53 M/mm3 (4.1-5.4); Red Cell Distribution Width 13.2 % (11.5-14.0); White Blood Count 10.9 K/mm3 (4.0-10.5)
--- NOTE | 2021-08-06 21:13 | ERPHSYRPT ---
- History of Present Illness Time Seen by Provider: 08/06/21 20:33 Historian: patient, police Exam Limitations: no limitations Patient Subjective Stated Complaint: "It feels like my heart is being crushed." Triage Nursing Assessment: Patient presens from [facility] with reported acute onset of substernal chest pain. Patient reported history significant for CHF and congentinal heart defect. She denied any precipitating events. Pain is described as crushing and radiating to her legs. She reported associated dyspnea. Patient is anxious and crying during the interview. Pupils 3mm bilateral. neck supple without JVD, bruits, or thrills. Symmetrical chest expansion. Heart tones S1/S2 RRR without extra sounds. Lungs vesicular without a dventitious sounds. peripheral pulses +3 bilateral. Abdomen non-distended, non- surgical, and without peritoneal sounds. Bowel sounds present in all quadrants. No noted dependent edema. Physician History: 31 years old female incarcerated with history of congestive heart robert lure/congenital heart disease presented in the ER with chief complaint of sudden onset substernal sharp crushing chest pain moderate to severe intensity without any significant aggravating or relieving factors and associated shortness of breath. Patient is very anxious. Patient reports having above medical/cardiac issues but has never been placed on any medications. Denies fever chills or cough. Timing/Duration: hour(s) (0.5), constant, sudden, worse Activities at Onset: rest Quality: sharpness Location: substernal Chest Pain Radiation: no radiation Severity of Pain-Max: severe Severity of Pain-Current: severe Modifying Factors: Improves With: nothing Associated Symptoms: shortness of breath Prior Chest Pain/Cardiac Workup: echocardiography Nitro Today/Relief: no nitro taken today Aspirin Treatment Today: no aspirin today Allergies/Adverse Reactions: bee venom protein (honey bee) Allergy (Severe, Verified 08/06/21 20:27) Swelling clarithromycin [From Biaxin] Allergy (Verified 08/06/21 20:27) pt not sure what reaction is Home Medications: Amoxicillin 500 mg PO BID 08/06/21 [History] Hx Tetanus, Diphtheria Vaccination/Date Given: Yes Hx Influenza Vaccination/Date Given: No Hx Pneumococcal Vaccination/Date Given: No Travel Risk - International Travel Have you traveled outside of the country in past 3 weeks: No - Coronavirus Screening Are you exhibiting any of the following symptoms?: No Close contact with a COVID-19 positive Pt in past 14-21 Days: No - Vaccine Status Have you recieved a Covid-19 vaccination: No - Review of Systems Constitutional: No Symptoms Eyes: No Symptoms Ears, Nose, & Throat: No Symptoms Respiratory: Dyspnea Cardiac: Chest Pain Abdominal/Gastrointestinal: No Symptoms Genitourinary Symptoms: No Symptoms Musculoskeletal: No Symptoms Skin: No Symptoms Neurological: No Symptoms Psychological: Anxiety Endocrine: No Symptoms Hematologic/Lymphatic: No Symptoms Immunological/Allergic: No Symptoms - Past Medical History Pertinent Past Medical History: Yes Neurological History: Migraines ENT History: No Pertinent History Cardiac History: Congenital Heart Disease, Congestive Heart Failure, Other Respiratory History: No Pertinent History Endocrine Medical History: No Pertinent History Musculoskeletal History: No Pertinent History GI Medical History: Irritable Bowel History: No Pertinent History Psycho-Social History: Anxiety, Panic Disorder Female Reproductive Disorders: Other Other Medical History: CHD, heart murmur; congenital septal defect; abnormal PAP. pt denies any new history - Past Surgical History Past Surgical History: Yes Neuro Surgical History: No Pertinent History Cardiac: No Pertinent History Respiratory: No Pertinent History Gastrointestinal: No Pertinent History Genitourinary: No Pertinent History Musculoskeletal: No Pertinent History Female Surgical History: No Pertinent History Other Surgical History: SURGERY ON FOREHEAD, pt states R eye surgery at 7 years old. sinus surgery to removed "BB" that was "snuffed" up her nose as a small child. denies any other surgeries. tubal - Social History Smoking Status: Current every day smoker How long have you smoked: years Exposure to second hand smoke: Yes Drug Use: none Patient Lives Alone: No - Female History Hx Last Menstrual Period: 07/23/2021 Hx Now: (unkn) - Nursing Vital Signs Nursing Vital Signs: Initial Vital Signs Pulse Rate 98 H 08/06/21 20:26 Respiratory Rate 26 H 08/06/21 20:26 Blood Pressure 136/76 08/06/21 20:26 O2 Sat by Pulse Oximetry 100 08/06/21 20:26 Pain Scale Pain Intensity 4 - Physical Exam General Appearance: no apparent distress, alert, anxiety Eye Exam: PERRL/EOMI, eyes nml inspection Ears, Nose, Throat Exam: normal ENT inspection, pharynx normal Neck Exam: normal inspection, supple, full range of motion Respiratory Exam: normal breath sounds, lungs clear, No chest tenderness Cardiovascular Exam: regular rate/rhythm, normal heart sounds Gastrointestinal/Abdomen Exam: soft, No tenderness Back Exam: normal inspection, normal range of motion, No CVA tenderness Extremity Exam: normal inspection, normal range of motion, pelvis stable Neurologic Exam: alert, oriented x 3, cooperative Skin Exam: normal color SpO2 Interpretation: normal SpO2: 100 O2 Delivery: Room Air - Course EKG Interpreted by Me: RATE, Sinus Rhythm, NORMAL AXIS, NORMAL INTERVALS, NORMAL QRS Ordered Tests: Active Orders 24 hr Category Date Time Status Gluer Machine Setup Operator STAT Care 08/06/21 20:34 Active EKG-ER Only STAT Care 08/06/21 20:33 Active IV Insertion STAT Care 08/06/21 20:33 Active CHEST 1 VIEW (PORTABLE) Stat Exams 08/06/21 20:34 Taken CBC W DIFF Stat Lab 08/06/21 21:00 Completed CK-Creatinine Phosphokinase Stat Lab 08/06/21 21:00 Completed CMP Stat Lab 08/06/21 21:00 Completed D-DIMER QUANTITATIVE Stat Lab 08/06/21 19:45 Completed HCG,QUALITATIVE URINE Stat Lab 08/06/21 21:05 Completed NT PRO BNP Stat Lab 08/06/21 21:00 Completed TROPONIN Q3H Lab 08/06/21 21:00 Completed TROPONIN Q3H Lab 08/06/21 23:02 Completed Urine Triage Profile Stat Lab 08/06/21 21:43 Completed Medication Summary Discontinued Medications Generic Name Dose Route Start Last Admin Trade Name Freq PRN Reason Stop Dose Admin Aspirin 324 mg 08/06/21 20:33 08/06/21 20:57 Aspirin 81 Mg Tab.Chew PO 08/06/21 20:34 324 mg STAT ONE Administration Ketorolac Tromethamine 30 mg 08/06/21 20:57 08/06/21 20:58 Ketorolac Tromethamine 30 Mg/Ml Inj IV 08/06/21 20:58 30 mg STAT ONE Administration Ketorolac Tromethamine Confirm 08/06/21 20:58 Ketorolac Tromethamine 30 Mg/Ml Inj Administered 08/06/21 20:59 Dose 30 mg .ROUTE .STYieldr-MED ONE Lab/Rad Data: Laboratory Result Diagrams 08/06/21 21:00 08/06/21 21:00 Laboratory Results 08/06/21 08/06/21 08/06/21 Range/Units 23:02 21:43 21:05 WBC (4.0-10.5) K/mm3 RBC (4.1-5.4) M/mm3 Hgb (12.0-16.0) gm/dl Hct (35-47) % MCV (78-100) fl MCH (26-32) pg MCHC (32-36) g/dl RDW (11.5-14.0) % Plt Count (150-450) K/mm3 MPV (7.5-11.0) fl Gran % (36.0-66.0) % Eos # (Auto) (0-0.5) Absolute Lymphs (auto) (1.0-4.6) Absolute Monos (auto) (0.0-1.3) Lymphocytes % (24.0-44.0) % Monocytes % (0.0-12.0) % Eosinophils % (0.00-5.0) % Basophils % (0.0-0.4) % Absolute Granulocytes (1.4-6.9) Basophils # (0-0.4) D-Dimer (215-500) ng/mL Sodium (137-145) mmol/L Potassium (3.5-5.1) mmol/L Chloride (98-107) mmol/L Carbon Dioxide (22-30) mmol/L Anion Gap (5-15) MEQ/L BUN (7-17) mg/dL Creatinine (0.52-1.04) mg/dL Estimated GFR ML/MIN Glucose (74-106) mg/dL Calcium (8.4-10.2) mg/dL Total Bilirubin (0.2-1.3) mg/dL AST (14-36) U/L ALT (0-35) U/L Alkaline Phosphatase (38-126) U/L Creatine Kinase (30-135) U/L Troponin I < 0.012 (0.000-0.034) ng/mL NT-Pro-B Natriuret Pep (0-450) pg/mL Serum Total Protein (6.3-8.2) g/dL Albumin (3.5-5.0) g/dL Urine HCG, Qual NEGATIVE (Negative) Urine Opiates Level NEGATIVE (NEGATIVE) Ur Methadone NEGATIVE (NEGATIVE) Urine Barbiturates NEGATIVE (NEGATIVE) Ur Phencyclidine (PCP) NEGATIVE (NEGATIVE) Urine Amphetamine NEGATIVE (NEGATIVE) U Benzodiazepine Level NEGATIVE (NEGATIVE) Urine Cocaine NEGATIVE (NEGATIVE) Urine Marijuana (THC) NEGATIVE (NEGATIVE) 08/06/21 08/06/21 08/06/21 Range/Units 21:00 21:00 21:00 WBC 10.9 H (4.0-10.5) K/mm3 RBC 4.53 (4.1-5.4) M/mm3 Hgb 14.5 (12.0-16.0) gm/dl Hct 43.2 (35-47) % MCV 95.4 (78-100) fl MCH 32.0 (26-32) pg MCHC 33.6 (32-36) g/dl RDW 13.2 (11.5-14.0) % Plt Count 279 (150-450) K/mm3 MPV 10.7 (7.5-11.0) fl Gran % 58.8 (36.0-66.0) % Eos # (Auto) 0.08 (0-0.5) Absolute Lymphs (auto) 3.48 (1.0-4.6) Absolute Monos (auto) 0.89 (0.0-1.3) Lymphocytes % 32.0 (24.0-44.0) % Monocytes % 8.2 (0.0-12.0) % Eosinophils % 0.7 (0.00-5.0) % Basophils % 0.3 (0.0-0.4) % Absolute Granulocytes 6.39 (1.4-6.9) Basophils # 0.03 (0-0.4) D-Dimer (215-500) ng/mL Sodium 139 (137-145) mmol/L Potassium 4.0 (3.5-5.1) mmol/L Chloride 102 (98-107) mmol/L Carbon Dioxide 25 (22-30) mmol/L Anion Gap 15.3 H (5-15) MEQ/L BUN 16 (7-17) mg/dL Creatinine 0.75 (0.52-1.04) mg/dL Estimated GFR > 60.0 ML/MIN Glucose 88 (74-106) mg/dL Calcium 9.1 (8.4-10.2) mg/dL Total Bilirubin 0.30 (0.2-1.3) mg/dL AST 20 (14-36) U/L ALT 19 (0-35) U/L Alkaline Phosphatase 59 (38-126) U/L Creatine Kinase 32 (30-135) U/L Troponin I < 0.012 (0.000-0.034) ng/mL NT-Pro-B Natriuret Pep 53.7 (0-450) pg/mL Serum Total Protein 6.7 (6.3-8.2) g/dL Albumin 4.3 (3.5-5.0) g/dL Urine HCG, Qual (Negative) Urine Opiates Level (NEGATIVE) Ur Methadone (NEGATIVE) Urine Barbiturates (NEGATIVE) Ur Phencyclidine (PCP) (NEGATIVE) Urine Amphetamine (NEGATIVE) U Benzodiazepine Level (NEGATIVE) Urine Cocaine (NEGATIVE) Urine Marijuana (THC) (NEGATIVE) 08/06/21 Range/Units 19:45 WBC (4.0-10.5) K/mm3 RBC (4.1-5.4) M/mm3 Hgb (12.0-16.0) gm/dl Hct (35-47) % MCV (78-100) fl MCH (26-32) pg MCHC (32-36) g/dl RDW (11.5-14.0) % Plt Count (150-450) K/mm3 MPV (7.5-11.0) fl Gran % (36.0-66.0) % Eos # (Auto) (0-0.5) Absolute Lymphs (auto) (1.0-4.6) Absolute Monos (auto) (0.0-1.3) Lymphocytes % (24.0-44.0) % Monocytes % (0.0-12.0) % Eosinophils % (0.00-5.0) % Basophils % (0.0-0.4) % Absolute Granulocytes (1.4-6.9) Basophils # (0-0.4) D-Dimer 473 (215-500) ng/mL Sodium (137-145) mmol/L Potassium (3.5-5.1) mmol/L Chloride (98-107) mmol/L Carbon Dioxide (22-30) mmol/L Anion Gap (5-15) MEQ/L BUN (7-17) mg/dL Creatinine (0.52-1.04) mg/dL Estimated GFR ML/MIN Glucose (74-106) mg/dL Calcium (8.4-10.2) mg/dL Total Bilirubin (0.2-1.3) mg/dL AST (14-36) U/L ALT (0-35) U/L Alkaline Phosphatase (38-126) U/L Creatine Kinase (30-135) U/L Troponin I (0.000-0.034) ng/mL NT-Pro-B Natriuret Pep (0-450) pg/mL Serum Total Protein (6.3-8.2) g/dL Albumin (3.5-5.0) g/dL Urine HCG, Qual (Negative) Urine Opiates Level (NEGATIVE) Ur Methadone (NEGATIVE) Urine Barbiturates (NEGATIVE) Ur Phencyclidine (PCP) (NEGATIVE) Urine Amphetamine (NEGATIVE) U Benzodiazepine Level (NEGATIVE) Urine Cocaine (NEGATIVE) Urine Marijuana (THC) (NEGATIVE) - Progress Progress: improved Air Movement: fair, good Progress Note: 08/06/21 23:37 31 years old is evaluated for sudden onset chest pain. EKG showed normal sinus rhythm. No acute ischemic changes. Negative troponins x2. Negative D-dimers. Chest x-ray did not reveal any acute cardiopulmonary finding reviewed by me, official report is pending. Patient is chest pain-free on reevaluation after giving aspirin and Toradol. Do not think patient needs to be admitted, recommended outpatient follow-up with her primary care and director of guidance for reevaluation. Discussed signs symptoms of worsening needing return to ER which she seems understanding. Blood Culture(s) Obtained: No Antibiotics given: No Counseled pt/family regarding: lab results, diagnosis, need for follow-up, rad results, smoking cessation - Departure Departure Disposition: Home Clinical Impression: Atypical chest pain Condition: Stable Critical Care Time: No Referrals: DAYNA GONZALEZ [ACTIVE STAFF] - (Sunday morning for reevaluation) DYLAN PADILLA [CONSULTING PHYSICIAN] - (Call Sunday for reevaluation) Instructions: Angina (DC), Chest Pain (DC) Additional Instructions: Take Tylenol/ibuprofen as needed for pain. Follow-up with primary care and cardiology for reevaluation. Return to ER for worsening chest pain or if develop shortness of breath/palpitations etc.
[2021-08-06 21:25] LABS: ALBUMIN 4.3 g/dL (3.5-5.0); ALKALINE PHOSPHATASE 59 U/L (38-126); ANION GAP 15.3 MEQ/L (5-15); BLOOD UREA NITROGEN 16 mg/dL (7-17); CHLORIDE 102 mmol/L (98-107); CK-Creatinine Phosphokinase 32 U/L (30-135); Calcium 9.1 mg/dL (8.4-10.2); Carbon Dioxide 25 mmol/L (22-30); Creatinine 1 0.75 mg/dL (0.52-1.04); EST GLOMERULAR FILTRATION RATE > 60.0 ML/MIN; Glucose 88 mg/dL (74-106); NT PRO BNP 53.7 pg/mL (0-450); SGOT/AST 20 U/L (14-36); SGPT/ALT 19 U/L (0-35); SODIUM 139 mmol/L (137-145); Total Protein 6.7 g/dL (6.3-8.2)
[2021-08-06 22:02] LABS: Barbiturate,Urine NEGATIVE (NEGATIVE); Benzodiazepine,Urine NEGATIVE (NEGATIVE); Cocaine,Urine NEGATIVE (NEGATIVE); Methadone,Urine NEGATIVE (NEGATIVE); Opiate,Urine NEGATIVE (NEGATIVE); PCP,Urine NEGATIVE (NEGATIVE); THC,Urine NEGATIVE (NEGATIVE)
[2021-08-06 22:05] LABS: Amphetamine,Urine NEGATIVE (NEGATIVE)
[2021-08-06 23:31] VITALS: BP 109/72; PULSE 84
[2021-08-07 00:20] VITALS: O2SAT 100
--- NOTE | 2021-08-07 07:08 | XRAY ---
Indication: Chest pain. Comparison: None Portable chest demonstrates normal heart, lungs, and bony thorax with incidental left upper lung calcified granuloma.
== END 2021-08-06 23:34 | disposition home or self-care (01) ==
LOC: ED 20:25
DX: R07.89 Other chest pain (principal)
CPT/HCPCS: 36000; 36415; 71045; 80053; 80307; 82550; 83880; 84484; 84703; 85025; 85379; 93005; 93041; 96374; 99284; J1885; A9270-GY

== ENCOUNTER 2022-06-07 09:22 | Emergency (ER) | payer OTHER ==
[2022-06-07] MEDS ORDERED: BABY ASPIRIN 81 MG CHEW PO ONE (09:30)
[2022-06-07] MEDS ORDERED: Sodium Chloride 0.9% 1000 ML 1,000 ML IV SCH (09:30)
[2022-06-07] MEDS ORDERED: SUBLIMAZE 100 MCG/2 ML IV ONE (09:30)
[2022-06-07 09:35] VITALS: O2SAT 100
[2022-06-07 10:02] LABS: Absolute Neutrophil Ct (ANC) 9.77 x10^3/uL (1.4-6.9); Basophil (Absolute #) 0.09 x10^3/uL (0-0.4); Eosinophil % 0.5 % (0.00-5.0); Eosinophil (Absolute #) 0.07 x10^3/uL (0-0.5); Hemoglobin 15.3 g/dL (12.0-16.0); Lymphocyte (Absolute #) 2.27 x10^3/uL (1.0-4.6); Lymphocytes % 17.3 % (24.0-44.0); Mean Cell Volume 92.2 fL (78-100); Mean Corpuscular Hemoglobin 31.4 pg (26-32); Mean Platelet Volume 10.2 fL (7.5-11.0); Monocyte (Absolute #) 0.83 x10^3/uL (0.0-1.3); Monocytes % 6.3 % (0.0-12.0); Neutrophil % 74.7 % (36.0-66.0); Platelet Count 348 x10^3/uL (150-450); Red Blood Count 4.88 x10^6/uL (4.1-5.4); Red Cell Distribution Width 14.5 % (11.5-14.0); White Blood Count 13.1 x10^3/uL (4.0-10.5)
[2022-06-07 10:19] LABS: ALBUMIN 4.9 g/dL (3.5-5.0); ALKALINE PHOSPHATASE 86 U/L (38-126); AMYLASE 83 U/L (30-110); BLOOD UREA NITROGEN 11 mg/dL (7-17); CHLORIDE 106 mmol/L (98-107); Calcium 9.7 mg/dL (8.4-10.2); Carbon Dioxide 23 mmol/L (22-30); Creatinine 1 0.77 mg/dL (0.52-1.04); EST GLOMERULAR FILTRATION RATE > 60.0 ML/MIN; Glucose 98 mg/dL (74-106); LIPASE 90 U/L (23-300); MAGNESIUM 1.9 mg/dL (1.6-2.3); NT PRO BNP 106 pg/mL (0-450); Potassium 3.7 mmol/L (3.5-5.1); SGOT/AST 23 U/L (14-36); SGPT/ALT 14 U/L (0-35); SODIUM 140 mmol/L (137-145)
[2022-06-07 10:24] LABS: INR 1.06 (0.8-3.0); PROTIME 11.2 SECONDS (9.4-12.5)
[2022-06-07 10:37] LABS: D-DIMER QUANTITATIVE 0.65 mg/L (0.0-0.50)
--- NOTE | 2022-06-07 10:48 | ERPHSYRPT ---
- History of Present Illness Time Seen by Provider: 06/07/22 09:40 Historian: patient Exam Limitations: no limitations Patient Subjective Stated Complaint: PT HERE FOR PAIN TO CHEST, STATES FEELS TIGHT SINCE ABOUT 0130 THIS MORNING, CO NUMBNESS TO LEFT HAND, SHE STATES SHE HAS BEEN UNDER A LOT OF STRESS Triage Nursing Assessment: PT ALERT, RESP EASY, SKIN W/D/P. FACE MASK IN PLACE, ANXIOUS AT TIMES, NO EDEMA NOTED,CHEST CLEAR Physician History: Patient is a 32-year-old female who presents with a complaint of chest pain which started at 1:30 AM today. The chest pain radiates through to the back she has been short of breath and its been hard to breathe she also complains of numbness in the left hand. She says she has a history of mitral valve prolapse and congestive heart failure but has never had a catheterization. 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 Timing/Duration: today Activities at Onset: sleep Quality: pressure, stabbing Location: substernal Severity of Pain-Max: moderate Severity of Pain-Current: mild Modifying Factors: Improves With: breathing, coughing Associated Symptoms: denies symptoms Prior Chest Pain/Cardiac Workup: echocardiography Nitro Today/Relief: no nitro taken today Aspirin Treatment Today: no aspirin today Allergies/Adverse Reactions: bee venom protein (honey bee) Allergy (Severe, Verified 06/07/22 09:36) Swelling clarithromycin [From Biaxin] Allergy (Verified 06/07/22 09:36) pt not sure what reaction is Home Medications: Multivit with Calcium,Iron,Min [Women's Daily Formula] 1 each PO DAILY 06/07/22 [History] Hx Tetanus, Diphtheria Vaccination/Date Given: Yes Hx Influenza Vaccination/Date Given: No Hx Pneumococcal Vaccination/Date Given: No Immunizations Up to Date: Yes Travel Risk - International Travel Have you traveled outside of the country in past 3 weeks: No - Coronavirus Screening Are you exhibiting any of the following symptoms?: No Close contact with a COVID-19 positive Pt in past 14-21 Days: No - Vaccine Status Have you recieved a Covid-19 vaccination: No - Review of Systems Constitutional: No Fever, No Chills Eyes: No Symptoms Ears, Nose, & Throat: No Symptoms Respiratory: Dyspnea, No Cough Cardiac: Chest Pain, No Edema, No Syncope Abdominal/Gastrointestinal: No Abdominal Pain, No Nausea, No Vomiting, No Diarrhea Genitourinary Symptoms: No Dysuria Musculoskeletal: No Back Pain, No Neck Pain Skin: No Rash Neurological: No Dizziness, No Focal Weakness, No Sensory Changes Psychological: No Symptoms Endocrine: No Symptoms All Other Systems: Reviewed and Negative - Past Medical History Pertinent Past Medical History: Yes Neurological History: Migraines ENT History: No Pertinent History Cardiac History: Congenital Heart Disease, Congestive Heart Failure, Other Respiratory History: No Pertinent History Endocrine Medical History: No Pertinent History Musculoskeletal History: No Pertinent History GI Medical History: Irritable Bowel History: No Pertinent History Psycho-Social History: Anxiety, Panic Disorder Female Reproductive Disorders: Other Other Medical History: CHD, heart murmur; congenital septal defect; abnormal PAP. pt denies any new history - Past Surgical History Past Surgical History: Yes Neuro Surgical History: No Pertinent History Cardiac: No Pertinent History Respiratory: No Pertinent History Gastrointestinal: No Pertinent History Genitourinary: No Pertinent History Musculoskeletal: No Pertinent History Female Surgical History: No Pertinent History Other Surgical History: SURGERY ON FOREHEAD, pt states R eye surgery at 7 years old. sinus surgery to removed "BB" that was "snuffed" up her nose as a small child. denies any other surgeries. tubal - Social History Smoking Status: Current every day smoker How long have you smoked: years Exposure to second hand smoke: Yes Drug Use: none Patient Lives Alone: No - Female History Hx Last Menstrual Period: NOW Hx Now: No - Nursing Vital Signs Nursing Vital Signs: Initial Vital Signs Temperature 97.2 F 06/07/22 09:25 Pulse Rate 90 06/07/22 09:25 Respiratory Rate 22 06/07/22 09:25 Blood Pressure 122/68 06/07/22 09:25 O2 Sat by Pulse Oximetry 100 06/07/22 09:25 Pain Scale Pain Intensity 3 - Physical Exam General Appearance: no apparent distress, alert Eye Exam: PERRL/EOMI, eyes nml inspection Ears, Nose, Throat Exam: normal ENT inspection, moist mucous membranes Neck Exam: normal inspection, non-tender, supple, full range of motion Respiratory Exam: normal breath sounds, lungs clear, No respiratory distress Cardiovascular Exam: regular rate/rhythm, normal heart sounds Gastrointestinal/Abdomen Exam: soft, No tenderness, No mass Back Exam: normal inspection, No CVA tenderness, No vertebral tenderness Extremity Exam: normal inspection, normal range of motion Neurologic Exam: alert, oriented x 3, cooperative, normal mood/affect, sensation nml, No motor deficits Skin Exam: normal color, warm, dry SpO2: 100 - Course Nursing assessment & vital signs reviewed: Yes - Radiology Exams Chest X-ray Interpretation: Interpreted by me - CT Exams Chest CT Interpretation: Negative (No PE noted), No PE Ordered Tests: Active Orders 24 hr Category Date Time Status EKG-ER Only STAT Care 06/07/22 09:30 Active IV Insertion STAT Care 06/07/22 09:30 Active CHEST 1 VIEW (PORTABLE) Stat Exams 06/07/22 09:31 Completed CHEST WITH CONTRAST [CT] Stat Exams 06/07/22 11:37 Taken AMYLASE Stat Lab 06/07/22 10:00 Completed CBC W DIFF Stat Lab 06/07/22 10:00 Completed CMP Stat Lab 06/07/22 10:00 Completed CULTURE,URINE Stat Lab 06/07/22 12:01 Received D-DIMER QUANTITATIVE Stat Lab 06/07/22 10:00 Completed HCG QUALITATIVE,SERUM Stat Lab 06/07/22 10:00 Completed LIPASE Stat Lab 06/07/22 10:00 Completed Lactic Acid Stat Lab 06/07/22 09:30 Ordered MAGNESIUM Stat Lab 06/07/22 10:00 Completed NT PRO BNP Stat Lab 06/07/22 10:00 Completed PROTIME WITH INR Stat Lab 06/07/22 10:00 Completed TROPONIN Q4H Lab 06/07/22 10:00 Completed TROPONIN Q4H Lab 06/07/22 13:45 Ordered TROPONIN Q4H Lab 06/07/22 17:45 Ordered UA W/RFX CULTURE Stat Lab 06/07/22 12:01 Completed Medication Summary Generic Name Dose Route Start Last Admin Trade Name Freq PRN Reason Stop Dose Admin Sodium Chloride 1,000 mls @ 50 mls/hr 06/07/22 09:30 06/07/22 11:03 Sodium Chloride 0.9% 1000 Ml IV 07/07/22 09:29 50 mls/hr .Q20H HARRISON Administration Discontinued Medications Generic Name Dose Route Start Last Admin Trade Name Freq PRN Reason Stop Dose Admin Aspirin 324 mg 06/07/22 09:30 06/07/22 11:02 Aspirin 81 Mg Tab.Chew PO 06/07/22 09:31 324 mg STAT ONE Administration Aspirin Confirm 06/07/22 11:00 Aspirin 81 Mg Tab.Chew Administered 06/07/22 11:01 Dose 324 mg .ROUTE .STK-MED ONE Fentanyl Citrate 50 mcg 06/07/22 09:30 06/07/22 11:02 Fentanyl Citrate 100 Mcg/2 Ml* Vial IV 06/07/22 09:31 50 mcg STAT ONE Administration Fentanyl Citrate Confirm 06/07/22 11:00 Fentanyl Citrate 100 Mcg/2 Ml* Vial Administered 06/07/22 11:01 Dose 100 mcg .ROUTE .STK-MED ONE Lab/Rad Data: Laboratory Result Diagrams 06/07/22 10:00 06/07/22 10:00 Laboratory Results 06/07/22 06/07/22 06/07/22 Range/Units 12:01 10:00 10:00 WBC (4.0-10.5) x10^3/uL RBC (4.1-5.4) x10^6/uL Hgb (12.0-16.0) g/dL Hct (35-47) % MCV (78-100) fL MCH (26-32) pg MCHC (32-36) g/dL RDW (11.5-14.0) % Plt Count (150-450) x10^3/uL MPV (7.5-11.0) fL Gran % (36.0-66.0) % Immature Gran % (Auto) (0.00-0.4) % Nucleat RBC Rel Count (0.00-0.1) % Eos # (Auto) (0-0.5) x10^3/uL Immature Gran # (Auto) (0.00-0.03) x10^3u/L Absolute Lymphs (auto) (1.0-4.6) x10^3/uL Absolute Monos (auto) (0.0-1.3) x10^3/uL Absolute Nucleated RBC (0.00-0.01) x10^3u/L Lymphocytes % (24.0-44.0) % Monocytes % (0.0-12.0) % Eosinophils % (0.00-5.0) % Basophils % (0.0-0.4) % Absolute Granulocytes (1.4-6.9) x10^3/uL Basophils # (0-0.4) x10^3/uL PT (9.4-12.5) SECONDS INR (0.8-3.0) D-Dimer (0.0-0.50) mg/L Sodium (137-145) mmol/L Potassium (3.5-5.1) mmol/L Chloride (98-107) mmol/L Carbon Dioxide (22-30) mmol/L Anion Gap (5-15) MEQ/L BUN (7-17) mg/dL Creatinine (0.52-1.04) mg/dL Estimated GFR ML/MIN Glucose (74-106) mg/dL Calcium (8.4-10.2) mg/dL Magnesium (1.6-2.3) mg/dL Total Bilirubin (0.2-1.3) mg/dL AST (14-36) U/L ALT (0-35) U/L Alkaline Phosphatase (38-126) U/L Troponin I < 0.012 (0.000-0.034) ng/mL NT-Pro-B Natriuret Pep (0-450) pg/mL Serum Total Protein (6.3-8.2) g/dL Albumin (3.5-5.0) g/dL Amylase (30-110) U/L Lipase (23-300) U/L Serum , Qual NEGATIVE (Negative) Urinalys Dipstick Clnc MAIN LAB Urine Color DARK YELLOW (YELLOW) Urine Appearance CLEAR (CLEAR) Urine pH 5.5 (5-6) Ur Specific [place] 1.020 (1.005-1.025) POC Urine Protein Conf NEGATIVE (Negative) Urine Ketones LARGE-80 (NEGATIVE) Urine Nitrite NEGATIVE (NEGATIVE) Urine Bilirubin SMALL (NEGATIVE) Urine Urobilinogen 0.2 (0-1) mg/dL Urine Leukocytes NEGATIVE (NEGATIVE) Urine WBC (Auto) 3-5 (0-5) /HPF Urine RBC (Auto) 3-5 (0-2) /HPF U Epithel Cells (Auto) NONE (FEW) /HPF Urine Bacteria (Auto) RARE (NEGATIVE) /HPF Urine RBC TRACE-INTACT (0-5) Michael/ul Urine Mucus (Auto) SLIGHT (NEGATIVE) /HPF Ur Culture Indicated? YES Urine Glucose NEGATIVE (NEGATIVE) mg/dL 08/24/22 08/24/22 08/24/22 Range/Units 10:00 10:00 10:00 WBC 13.1 H (4.0-10.5) x10^3/uL RBC 4.88 (4.1-5.4) x10^6/uL Hgb 15.3 (12.0-16.0) g/dL Hct 45.0 (35-47) % MCV 92.2 (78-100) fL MCH 31.4 (26-32) pg MCHC 34.0 (32-36) g/dL RDW 14.5 H (11.5-14.0) % Plt Count 348 (150-450) x10^3/uL MPV 10.2 (7.5-11.0) fL Gran % 74.7 H (36.0-66.0) % Immature Gran % (Auto) 0.5 H (0.00-0.4) % Nucleat RBC Rel Count 0.0 (0.00-0.1) % Eos # (Auto) 0.07 (0-0.5) x10^3/uL Immature Gran # (Auto) 0.07 H (0.00-0.03) x10^3u/L Absolute Lymphs (auto) 2.27 (1.0-4.6) x10^3/uL Absolute Monos (auto) 0.83 (0.0-1.3) x10^3/uL Absolute Nucleated RBC 0.00 (0.00-0.01) x10^3u/L Lymphocytes % 17.3 L (24.0-44.0) % Monocytes % 6.3 (0.0-12.0) % Eosinophils % 0.5 (0.00-5.0) % Basophils % 0.7 (0.0-0.4) % Absolute Granulocytes 9.77 H (1.4-6.9) x10^3/uL Basophils # 0.09 (0-0.4) x10^3/uL PT 11.2 (9.4-12.5) SECONDS INR 1.06 (0.8-3.0) D-Dimer 0.65 H* (0.0-0.50) mg/L Sodium 140 (137-145) mmol/L Potassium 3.7 (3.5-5.1) mmol/L Chloride 106 (98-107) mmol/L Carbon Dioxide 23 (22-30) mmol/L Anion Gap 15.0 (5-15) MEQ/L BUN 11 (7-17) mg/dL Creatinine 0.77 (0.52-1.04) mg/dL Estimated GFR > 60.0 ML/MIN Glucose 98 (74-106) mg/dL Calcium 9.7 (8.4-10.2) mg/dL Magnesium 1.9 (1.6-2.3) mg/dL Total Bilirubin 0.90 (0.2-1.3) mg/dL AST 23 (14-36) U/L ALT 14 (0-35) U/L Alkaline Phosphatase 86 (38-126) U/L Troponin I (0.000-0.034) ng/mL NT-Pro-B Natriuret Pep 106 (0-450) pg/mL Serum Total Protein 8.0 (6.3-8.2) g/dL Albumin 4.9 (3.5-5.0) g/dL Amylase 83 (30-110) U/L Lipase 90 (23-300) U/L Serum , Qual (Negative) Urinalys Dipstick Clnc Urine Color (YELLOW) Urine Appearance (CLEAR) Urine pH (5-6) Ur Specific [place] (1.005-1.025) POC Urine Protein Conf (Negative) Urine Ketones (NEGATIVE) Urine Nitrite (NEGATIVE) Urine Bilirubin (NEGATIVE) Urine Urobilinogen (0-1) mg/dL Urine Leukocytes (NEGATIVE) Urine WBC (Auto) (0-5) /HPF Urine RBC (Auto) (0-2) /HPF U Epithel Cells (Auto) (FEW) /HPF Urine Bacteria (Auto) (NEGATIVE) /HPF Urine RBC (0-5) Michael/ul Urine Mucus (Auto) (NEGATIVE) /HPF Ur Culture Indicated? Urine Glucose (NEGATIVE) mg/dL - Progress Progress: improved Air Movement: good Blood Culture(s) Obtained: No Antibiotics given: No - Departure Departure Disposition: Home Clinical Impression: Atypical chest pain Condition: Stable Critical Care Time: No Referrals: DOCTOR,NO FAMILY [Primary Care Provider] - Follow up/PCP as directed Instructions: Chest Pain (DC)
[2022-06-07] MEDS ORDERED: Sodium Chloride 0.9% 1000 ML 1,000 ML ONE (10:59)
[2022-06-07] MEDS ORDERED: BABY ASPIRIN 81 MG CHEW ONE (11:00)
[2022-06-07] MEDS ORDERED: SUBLIMAZE 100 MCG/2 ML ONE (11:00)
--- NOTE | 2022-06-07 11:19 | XRAY ---
Exam: AP upright portable chest film from 06/07/2022. Comparison: AP upright portable chest film from 08/06/2021. Indication: Chest pain. Findings: The heart size and contour are normal. I again see a small incidental calcified granuloma within the left suprahilar projection. The lungs are well expanded and appear clear. Pulmonary vascularity is normal. No pneumothorax or pleural effusion is seen. No acute osseous process is seen. Impression: 1. No acute cardiopulmonary disease is seen, no change from 08/06/2021.
[2022-06-07 12:20] LABS: Bacteria RARE /HPF (NEGATIVE); Mucus SLIGHT /HPF (NEGATIVE)
[2022-06-07 12:25] LABS: Appearance CLEAR (CLEAR); Bilirubin SMALL (NEGATIVE); Glucose NEGATIVE (NEGATIVE); Ketones LARGE-80 (NEGATIVE); Ph 5.5 (5-6); RBC TRACE-INTACT Ery/ul (0-5)
[2022-06-07 12:26] LABS: Dipstick done @ ? MAIN LAB; Nitrite NEGATIVE (NEGATIVE); Protein,Urine Dip NEGATIVE (Negative); Urobilinogen 0.2 mg/dL (0-1)
[2022-06-07 12:29] LABS: Urine Cultured Indicated? YES
--- NOTE | 2022-06-07 12:49 | XRAY ---
Exam: CT of the chest with IV contrast per PE protocol from 06/07/2022. CTDI: 29.60 mGy Comparison: AP upright portable chest film from 06/07/2022. Indication: 32-year-old female with chest pain radiating into middle of back associated with shortness of breath and loss of feeling within left arm; elevated d-dimer of 0.65; history of mitral valve prolapse. Technique: Post-IV contrast axial images were obtained through the chest during automated intravenous injection of 80 cc of Isovue-370 contrast material per PE protocol. Reconstructed coronal and sagittal images were created and reviewed. Findings: The pulmonary arteries are well-opacified and reveal no filling defects to suggest clot/emboli. I see no evidence of thoracic aortic aneurysm or dissection. The heart size is normal without pericardial effusion. Small granulomatous calcifications are seen at the posterior margin of the left hilum. I also note a couple calcified granulomas within the posterior left midlung field, probably within the superior segment of the left lower lobe. No pathological mediastinal lymphadenopathy is seen. Incidentally, there is some minimal nodularity within both lobes of the thyroid gland, the largest nodule measuring about 5.5 mm in diameter. The lung ross reveal no air space infiltrates, vascular congestion, pneumothorax, or pleural fluid. No abnormal soft tissue lung nodularity is seen. The upper abdomen reveals no gross abnormality. The adrenal glands appear unremarkable. The skeleton reveals no acute fracture or aggressive bone lesion.. Some tiny Schmorl's nodes are seen within the lower thoracic spine and upper lumbar spine. Impression: 1. No evidence of pulmonary embolus is seen. Nor do I see evidence of thoracic aortic aneurysm or dissection. 2. Mild old healed granulomatous disease is seen in the left. 3. No other acute cardiopulmonary disease is seen. 4. Minimal nodularity is seen within the visualized thyroid lobes. Consider further evaluation with a thyroid ultrasound.
[2022-06-07 13:19] VITALS: BP 94/56; PULSE 88
== END 2022-06-07 13:19 | disposition home or self-care (01) ==
LOC: ED 09:22
DX: R07.89 Other chest pain (principal); I50.9 Heart failure, unspecified; Z72.0 Tobacco use; Z28.310 Unvaccinated for COVID-19
CPT/HCPCS: 36000; 36415; 71045; 71260; 80053; 81015; 82150; 83690; 83735; 83880; 84484; 84703; 85025; 85379; 85610; 87086; 93005; 96374; 99284; J3010; A9270-GY

== ENCOUNTER 2022-08-21 17:32 | Emergency (ER) | payer OTHER ==
[2022-08-21] MEDS ORDERED: Sodium Chloride 0.9% 1000 ML 1,000 ML ONE (18:37)
[2022-08-21] MEDS ORDERED: Zofran 4 MG/2 ML VIAL ONE (18:37)
[2022-08-21] MEDS: Zofran 4 MG/2 ML VIAL IV ONE (18:39)
[2022-08-21] MEDS: Sodium Chloride 0.9% 1000 ML 1,000 ML IV STA (18:39)
[2022-08-21 18:42] LABS: Absolute Neutrophil Ct (ANC) 12.36 x10^3/uL (1.4-6.9); Basophil (Absolute #) 0.03 x10^3/uL (0-0.4); Eosinophil (Absolute #) 0 x10^3/uL (0-0.5); Hematocrit 48.5 % (35-47); Hemoglobin 16.2 g/dL (12.0-16.0); Lymphocyte (Absolute #) 1.46 x10^3/uL (1.0-4.6); Lymphocytes % 9.9 % (24.0-44.0); Mean Cell Volume 94.9 fL (78-100); Mean Corpuscular Hemoglobin 31.7 pg (26-32); Mean Corpuscular Hgb Concent. 33.4 g/dL (32-36); Mean Platelet Volume 9.3 fL (7.5-11.0); Monocytes % 6.1 % (0.0-12.0); Neutrophil % 83.4 % (36.0-66.0); Platelet Count 217 x10^3/uL (150-450); Red Blood Count 5.11 x10^6/uL (4.1-5.4); Red Cell Distribution Width 13.3 % (11.5-14.0); White Blood Count 14.8 x10^3/uL (4.0-10.5)
[2022-08-21 18:55] LABS: Bacteria RARE /HPF (NEGATIVE); Mucus SLIGHT /HPF (NEGATIVE); RBC 0-2 /HPF (0-2); WBC 0-2 /HPF (0-5)
[2022-08-21 18:56] LABS: ALBUMIN 4.9 g/dL (3.5-5.0); ALKALINE PHOSPHATASE 80 U/L (38-126); ANION GAP 14.1 MEQ/L (5-15); BLOOD UREA NITROGEN 8 mg/dL (7-17); CHLORIDE 103 mmol/L (98-107); Calcium 9.5 mg/dL (8.4-10.2); Carbon Dioxide 25 mmol/L (22-30); Creatinine 1 0.85 mg/dL (0.52-1.04); EST GLOMERULAR FILTRATION RATE > 60.0 ML/MIN; ETHYL ALCOHOL < 10 mg/dL (0-10); Glucose 111 mg/dL (74-106); MAGNESIUM 1.8 mg/dL (1.6-2.3); SGOT/AST 15 U/L (14-36); SGPT/ALT 12 U/L (0-35); SODIUM 138 mmol/L (137-145); Total Protein 7.8 g/dL (6.3-8.2)
[2022-08-21 18:58] LABS: Appearance CLEAR (CLEAR); Bilirubin NEGATIVE (NEGATIVE); Glucose NEGATIVE (NEGATIVE); Ketones NEGATIVE (NEGATIVE); Nitrite NEGATIVE (NEGATIVE); Protein,Urine Dip TRACE (Negative); RBC NEGATIVE Ery/ul (0-5); Specific Gravity 1.025 (1.005-1.025); Urobilinogen 0.2 mg/dL (0-1)
[2022-08-21 18:59] LABS: Dipstick done @ ? MAIN LAB; Urine Cultured Indicated? NO
[2022-08-21 19:07] LABS: Amphetamine,Urine NEGATIVE (NEGATIVE); Barbiturate,Urine NEGATIVE (NEGATIVE); Benzodiazepine,Urine NEGATIVE (NEGATIVE); Cocaine,Urine NEGATIVE (NEGATIVE); Methadone,Urine NEGATIVE (NEGATIVE); Opiate,Urine NEGATIVE (NEGATIVE); PCP,Urine NEGATIVE (NEGATIVE); THC,Urine NEGATIVE (NEGATIVE)
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
[2022-08-21 19:26] LABS: INFLUENZA A NEGATIVE (NEGATIVE); INFLUENZA B NEGATIVE (NEGATIVE); RESPIRATORY SYNCTIAL VIRUS NEGATIVE (Negative); SARS-CoV-2 Xpert Express NEGATIVE (NEGATIVE)
[2022-08-21 23:07] VITALS: BP 98/59; PULSE 60
[2022-08-21 23:19] VITALS: O2SAT 98
--- NOTE | 2022-08-22 08:35 | XRAY ---
Indication: Chest pain. Comparison: June 07, 2022 Portable chest again demonstrates normal heart, lungs, and bony thorax with incidental left suprahilar calcified granuloma.
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
== END 2022-08-21 23:32 | disposition home or self-care (01) ==
LOC: ED 17:32
DX: R77.8 Other specified abnormalities of plasma proteins (principal); R55 Syncope and collapse; Z72.0 Tobacco use; Z28.310 Unvaccinated for COVID-19
CPT/HCPCS: 0241U; 36000; 36415; 70450; 71045; 80053; 80307; 81015; 81025; 83605; 83690; 83735; 84484; 85025; 93005; 96374; 99284; 99291; G0480; J2405

== ENCOUNTER 2022-11-10 13:08 | Emergency (ER) | payer OTHER ==
[2022-11-10 13:15] VITALS: BP 138/72
[2022-11-10] MEDS ORDERED: Cleocin Phosphate IV 600 MG/4 ML IM STA (13:24)
[2022-11-10] MEDS ORDERED: TORAdol 30 mg Injection IM ONE (13:24)
[2022-11-10] MEDS ORDERED: TORAdol 30 mg Injection ONE (13:26)
[2022-11-10] MEDS ORDERED: CLEOCIN 150 MG CAPSULE PO ONE (13:30)
[2022-11-10] MEDS ORDERED: CLEOCIN 150 MG CAPSULE ONE (13:31)
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
[2022-11-10 13:50] VITALS: PULSE 56; O2SAT 98
== END 2022-11-10 13:50 | disposition home or self-care (01) ==
LOC: ED 13:08
DX: K02.9 Dental caries, unspecified (principal); K04.7 Periapical abscess without sinus; K08.89 Other specified disorders of teeth and supporting structures; Z28.310 Unvaccinated for COVID-19; Z72.0 Tobacco use
CPT/HCPCS: 96372; 99283; J1885; A9270-GY

== ENCOUNTER 2023-06-06 20:23 | Emergency (ER) | payer OTHER | END 2023-06-06 20:45 | disposition left against medical advice (07) | LOC: ED 20:23 | DX: Z53.21 Procedure and treatment not carried out due to patient leaving prior to being seen by health care provider (principal) ==

== ENCOUNTER 2023-07-02 17:03 | Emergency (ER) | payer OTHER ==
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
[2023-07-02 17:28] VITALS: PULSE 106; RESP 22; TEMP 97.8; O2SAT 99
[2023-07-02 18:20] LABS: INFLUENZA A NEGATIVE (NEGATIVE); INFLUENZA B NEGATIVE (NEGATIVE); RESPIRATORY SYNCTIAL VIRUS NEGATIVE (NEGATIVE); SARS-CoV-2 Xpert Express NEGATIVE (NEGATIVE)
== END 2023-07-02 18:25 | disposition left against medical advice (07) ==
LOC: ED 17:03
DX: J02.9 Acute pharyngitis, unspecified (principal); R05.9 Cough, unspecified; I50.9 Heart failure, unspecified; Z28.310 Unvaccinated for COVID-19; Z72.0 Tobacco use
CPT/HCPCS: 0241U; 87651; 99282

== ENCOUNTER 2023-10-12 18:40 | Emergency (ER) | payer OTHER ==
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
[2023-10-12 18:54] VITALS: O2SAT 98
[2023-10-12 18:57] VITALS: RESP 18; TEMP 98.3
[2023-10-12] MEDS ORDERED: PERCOCET TABLET 5/325MG PO STA (19:37)
[2023-10-12] MEDS ORDERED: Augmentin 500-125 Tablet PO ONE (19:37)
[2023-10-12] MEDS ORDERED: PERCOCET TABLET 5/325MG ONE (19:40)
[2023-10-12] MEDS ORDERED: Augmentin 500-125 Tablet ONE (19:41)
[2023-10-12 20:08] VITALS: BP 112/81; PULSE 90
--- NOTE | 2023-10-12 21:47 | XRAY ---
Indication: Pain. Dog bite. Comparison: None 3 view left hand obtained. No bony, articular, or soft tissue abnormalities.
== END 2023-10-12 20:10 | disposition home or self-care (01) ==
LOC: ED 18:40
DX: S60.572A Other superficial bite of hand of left hand, initial encounter (principal); W54.0XXA Bitten by dog, initial encounter; Z79.899 Other long term (current) drug therapy; Z28.310 Unvaccinated for COVID-19; Z72.0 Tobacco use
CPT/HCPCS: 73130; 99283; A9270-GY

== ENCOUNTER 2023-10-13 13:10 | Emergency (ER) | payer OTHER ==
[2023-10-13 13:54] VITALS: BP 129/91; PULSE 111; RESP 20; TEMP 97; O2SAT 100
[2023-10-13] MEDS ORDERED: TORAdol 30 mg Injection IM ONE (13:55)
[2023-10-13] MEDS ORDERED: Rocephin 1000 MG INJ IM ONE (13:55)
[2023-10-13] MEDS ORDERED: XYLOCAINE 1% HCL 20 ML MDV ONE (14:07)
[2023-10-13] MEDS ORDERED: BACIGUENT PACKET ONE (14:07)
[2023-10-13] MEDS ORDERED: Rocephin 1000 MG INJ ONE (14:07)
[2023-10-13] MEDS ORDERED: TORAdol 30 mg Injection ONE (14:07)
--- NOTE | 2023-10-13 14:12 | ERPHSYRPT ---
- History of Present Illness Time Seen by Provider: 10/13/23 14:09 Source: patient Exam Limitations: no limitations Patient Subjective Stated Complaint: Dog bite- left hand Triage Nursing Assessment: Patient ambulated back to ED and transferred self to chair. Patient A+O x3. Patient's skin pink, warm and dry. Patient complains of dog bite to left hand. Patient states she was attemping to break up a dog fight between her dog and another dog. Patient complains of left hand pain 10/10. Patient states her dog is the one that bit her and she is up to date on vaccinations. Physician History: Dog bite- left hand today. Patient complains of dog bite to left hand. Patient states she was attempting to break up a dog fight between her dog and another dog. Patient complains of left hand pain 10/10. Patient states her dog is the one that bit her and she is up to date on vaccinations She had another dog bite encounter yesterday and was seen in ER Timing/Duration: today Severity: moderate Modifying Factors: Improves With: cold therapy Associated Symptoms: denies symptoms Allergies/Adverse Reactions: bee venom protein (honey bee) Allergy (Severe, Verified 10/13/23 13:25) Swelling clarithromycin [From Biaxin] Allergy (Verified 10/13/23 13:25) pt not sure what reaction is Home Medications: Lamotrigine 100 mg [lamICTAL 100MG TABLET] 100 mg PO DAILY 10/12/23 [History] Prazosin HCl 2 mg PO DAILY 10/12/23 [History] Sertraline HCl 50 mg [Zoloft 50 mg Tablet] 50 mg PO DAILY 10/12/23 [History] Hx Tetanus, Diphtheria Vaccination/Date Given: Yes Hx Influenza Vaccination/Date Given: No Hx Pneumococcal Vaccination/Date Given: No Immunizations Up to Date: Yes Travel Risk - International Travel Have you traveled outside of the country in past 3 weeks: No - Coronavirus Screening Are you exhibiting any of the following symptoms?: No Close contact with a COVID-19 positive Pt in past 14-21 Days: No - Vaccine Status Have you recieved a Covid-19 vaccination: No - Review of Systems Constitutional: No Fever, No Chills Eyes: No Symptoms Ears, Nose, & Throat: No Symptoms Respiratory: No Cough, No Dyspnea Cardiac: No Chest Pain, No Edema, No Syncope Abdominal/Gastrointestinal: No Abdominal Pain, No Nausea, No Vomiting, No Diarrhea Genitourinary Symptoms: No Dysuria Musculoskeletal: No Back Pain, No Neck Pain Skin: Other (superficial puncture bite on left palm nearby thumb and index finger), No Rash Neurological: No Dizziness, No Focal Weakness, No Sensory Changes Psychological: No Symptoms Endocrine: No Symptoms All Other Systems: Reviewed and Negative - Past Medical History Pertinent Past Medical History: Yes Neurological History: Migraines ENT History: No Pertinent History Cardiac History: Congenital Heart Disease, Congestive Heart Failure, Other Respiratory History: No Pertinent History Endocrine Medical History: No Pertinent History Musculoskeletal History: No Pertinent History GI Medical History: Irritable Bowel History: No Pertinent History Psycho-Social History: Anxiety, Depression, Panic Disorder Female Reproductive Disorders: Other Other Medical History: CHD, heart murmur; congenital septal defect; abnormal PAP - Past Surgical History Past Surgical History: Yes Neuro Surgical History: No Pertinent History Cardiac: No Pertinent History Respiratory: No Pertinent History Gastrointestinal: No Pertinent History Genitourinary: No Pertinent History Musculoskeletal: No Pertinent History Female Surgical History: Tubal Ligation Other Surgical History: SURGERY ON FOREHEAD, pt states R eye surgery at 7 years old. sinus surgery to removed "BB" that was "snuffed" up her nose as a small child. denies any other surgeries. tubal - Social History Smoking Status: Current every day smoker How long have you smoked: years Exposure to second hand smoke: Yes Drug Use: none Patient Lives Alone: No - Female History Hx Last Menstrual Period: this month Hx Now: No - Nursing Vital Signs Nursing Vital Signs: Initial Vital Signs Temperature 97.0 F 10/13/23 13:47 Pulse Rate 111 H 10/13/23 13:47 Respiratory Rate 20 10/13/23 13:47 Blood Pressure 129/91 10/13/23 13:47 O2 Sat by Pulse Oximetry 100 10/13/23 13:47 Pain Scale Pain Intensity 10 - Physical Exam General Appearance: no apparent distress, alert Eye Exam: PERRL/EOMI Ears, Nose, Throat Exam: normal ENT inspection Neck Exam: normal inspection, full range of motion Respiratory Exam: normal breath sounds, No respiratory distress Cardiovascular Exam: regular rate/rhythm, normal heart sounds, normal peripheral pulses Gastrointestinal/Abdomen Exam: soft, normal bowel sounds, No tenderness, No mass Back Exam: normal inspection, normal range of motion, No CVA tenderness, No vertebral tenderness Extremity Exam: normal inspection, normal range of motion, pelvis stable Neurologic Exam: alert, oriented x 3, cooperative, normal mood/affect, nml cerebellar function, nml station & gait, sensation nml, No motor deficits Skin Exam: normal color, warm, dry, laceration (puncture wound on left hand at 1st ungal area), No rash Lymphatic Exam: No adenopathy SpO2 Interpretation: normal SpO2: 100 O2 Delivery: Room Air - Course Nursing assessment & vital signs reviewed: Yes - Radiology Exams Hand X-ray Interpretation: Reviewed by me, Negative, No Fracture Ordered Tests: Active Orders 24 hr Category Date Time Status Wound Care STAT Care 10/13/23 13:55 Active HAND (MINIMUM 3 VIEWS) Stat Exams 10/13/23 14:02 Taken Medication Summary Discontinued Medications Generic Name Dose Route Start Last Admin Trade Name Freq PRN Reason Stop Dose Admin Bacitracin Zinc Confirm 10/13/23 14:07 Bacitracin Packet 1 Each Pckt Administered 10/13/23 14:08 Dose 1 each .ROUTE .STK-MED ONE Ceftriaxone Sodium 1,000 mg 10/13/23 13:55 10/13/23 14:09 Ceftriaxone Sodium 1000 Mg Inj Vial IM 10/13/23 13:56 1,000 mg STAT ONE Administration Ceftriaxone Sodium Confirm 10/13/23 14:07 Ceftriaxone Sodium 1000 Mg Inj Vial Administered 10/13/23 14:08 Dose 1,000 mg .ROUTE .STK-MED ONE Ketorolac Tromethamine 60 mg 10/13/23 13:55 10/13/23 14:09 Ketorolac Tromethamine 30 Mg/Ml Inj IM 10/13/23 13:56 60 mg STAT ONE Administration Ketorolac Tromethamine Confirm 10/13/23 14:07 Ketorolac Tromethamine 30 Mg/Ml Inj Administered 10/13/23 14:08 Dose 60 mg .ROUTE .STK-MED ONE Lidocaine HCl Confirm 10/13/23 14:07 Lidocaine Hcl 1% 20 Ml Mdv 20 Ml Ml Administered 10/13/23 14:08 Dose 3 ml .ROUTE .STK-MED ONE - Progress Progress: improved, pain not gone completely Counseled pt/family regarding: diagnosis, need for follow-up, rad results Medical Desision Making - Risk of complications Low Risk: Low risk of morbidity from additional dx testing or treatment - Departure Departure Disposition: Home Clinical Impression: Dog bite of left hand Qualifiers: Encounter type: initial encounter Qualified Code(s): S61.452A - Open bite of left hand, initial encounter; W54.0XXA - Bitten by dog, initial encounter Injury of left hand Qualifiers: Encounter type: initial encounter Qualified Code(s): S69.92XA - Unspecified injury of left wrist, hand and finger(s), initial encounter Condition: Stable Critical Care Time: No Referrals: DOCTOR,NO FAMILY [Primary Care Provider] - Follow up/PCP as directed Instructions: Animal Bites (DC) Additional Instructions: Continue antibiotics given yesterday. Discharge/Care Plan ELAINA HIGGINS was seen on 10/13/23 in the Emergency Room. The patient was counseled regarding Diagnosis,Lab results, Imaging studies, need for follow up and when to return to the Emergency Room. Prescriptions given: Discharge Note I have spoken with the patient and/or caregivers. I have explained the patient's condition, diagnosis and treatment plan based on the information available to me at this time. I have answered the patient's and/or caregiver's questions and addressed any concerns. The patient and/or caregivers have as good understanding of the patient's diagnosis, condition and treatment plan as can be expected at this point. The vital signs have been stable. The patient's condition is stable and appropriate for discharge from the emergency department. The patient will pursue further outpatient evaluation with the primary care physician or other designated or consulting physician as outlined in the discharge instructions. The patient and/or caregivers are agreeable to this plan of care and follow-up instructions have been explained in detail. The patient and/or caregivers have received these instruction. The patient/and or caregivers are aware that any significant change in condition or worsening of symptoms should prompt an immediate return to this or the closest emergency department or call 911. Prescriptions: Naproxen 375 mg [Naprosyn 375 mg] 375 mg PO Q8H #30 tablet
--- NOTE | 2023-10-13 20:54 | XRAY ---
Indication: Dog bite. Comparison: One day earlier. 3 view left hand obtained. Again no bony, articular, or soft tissue abnormalities.
== END 2023-10-13 14:43 | disposition home or self-care (01) ==
LOC: ED 13:10
DX: S61.452A Open bite of left hand, initial encounter (principal); W54.0XXA Bitten by dog, initial encounter; S69.92XA Unspecified injury of left wrist, hand and finger(s), initial encounter; Z79.899 Other long term (current) drug therapy; Z28.310 Unvaccinated for COVID-19; Z72.0 Tobacco use
CPT/HCPCS: 73130; 96372; 99284; J0696; J1885; A9270-GY

== ENCOUNTER 2023-12-31 19:54 | Emergency (ER) | payer OTHER ==
--- NOTE | 2023-12-31 19:57 | ERPHSYRPT ---
- History of Present Illness Time Seen by Provider: 12/31/23 19:57 Source: patient, family Exam Limitations: no limitations Allergies/Adverse Reactions: bee venom protein (honey bee) Allergy (Severe, Verified 10/13/23 13:25) Swelling clarithromycin [From Biaxin] Allergy (Verified 10/13/23 13:25) pt not sure what reaction is Home Medications: Lamotrigine 100 mg [lamICTAL 100MG TABLET] 100 mg PO DAILY 10/12/23 [History] Prazosin HCl 2 mg PO DAILY 10/12/23 [History] Sertraline HCl 50 mg [Zoloft 50 mg Tablet] 50 mg PO DAILY 10/12/23 [History] Hx Tetanus, Diphtheria Vaccination/Date Given: Yes Hx Influenza Vaccination/Date Given: No Hx Pneumococcal Vaccination/Date Given: No Travel Risk - Vaccine Status Have you recieved a Covid-19 vaccination: No - Past Medical History Pertinent Past Medical History: Yes Neurological History: Migraines ENT History: No Pertinent History Cardiac History: Congenital Heart Disease, Congestive Heart Failure, Other Respiratory History: No Pertinent History Endocrine Medical History: No Pertinent History Musculoskeletal History: No Pertinent History GI Medical History: Irritable Bowel History: No Pertinent History Psycho-Social History: Anxiety, Depression, Panic Disorder Female Reproductive Disorders: Other Other Medical History: CHD, heart murmur; congenital septal defect; abnormal PAP - Past Surgical History Past Surgical History: Yes Neuro Surgical History: No Pertinent History Cardiac: No Pertinent History Respiratory: No Pertinent History Gastrointestinal: No Pertinent History Genitourinary: No Pertinent History Musculoskeletal: No Pertinent History Female Surgical History: Tubal Ligation Other Surgical History: SURGERY ON FOREHEAD, pt states R eye surgery at 7 years old. sinus surgery to removed "BB" that was "snuffed" up her nose as a small child. denies any other surgeries. tubal - Social History Smoking Status: Current every day smoker How long have you smoked: years Exposure to second hand smoke: Yes Drug Use: none Patient Lives Alone: No
== END 2023-12-31 20:23 | disposition left against medical advice (07) ==
LOC: ED 19:54
DX: Z53.21 Procedure and treatment not carried out due to patient leaving prior to being seen by health care provider (principal)

== ENCOUNTER 2024-01-07 11:35 | Emergency (ER) | payer OTHER ==
--- NOTE | 2024-01-07 11:40 | ERPHSYRPT ---
- History of Present Illness Time Seen by Provider: 01/07/24 11:40 Source: patient Exam Limitations: no limitations Physician History: This is a 33-year-old white female patient who presents with substernal central chest pain that radiates into her back. It is sharp. She has shortness of breath because she cannot take a deep breath without pain. She had associated v omiting this morning. Patient woke up approximately an hour prior to arrival with the symptoms. Patient stated that she did eat [employer] last evening and no meals this morning. Patient has no history of coronary artery disease. However, she does have a history of congenital heart disease. She has a history of CHF, irritable bowel syndrome, migraine headaches, anxiety and panic disorder. Patient has had tubal ligation but no other abdominal surgeries. Her room air oxygen saturation level on arrival is 100%. Timing/Duration: today Activities at Onset: none Severity of Dyspnea-Max: mild Severity of Dyspnea-Current: mild Possible Cause: no prior episodes Modifying Factors: Improves With: nothing (Patient woke up with the symptoms) Associated Symptoms: anxiety, chest pain/discomfort, painful breathing Allergies/Adverse Reactions: bee venom protein (honey bee) Allergy (Severe, Verified 01/07/24 11:49) Swelling clarithromycin [From Biaxin] Allergy (Verified 01/07/24 11:49) pt not sure what reaction is Home Medications: Lamotrigine 100 mg [lamICTAL 100MG TABLET] 100 mg PO DAILY 10/12/23 [History] Prazosin HCl 2 mg PO DAILY 10/12/23 [History] Sertraline HCl 50 mg [Zoloft 50 mg Tablet] 50 mg PO DAILY 10/12/23 [History] Hx Tetanus, Diphtheria Vaccination/Date Given: Yes Hx Influenza Vaccination/Date Given: No Hx Pneumococcal Vaccination/Date Given: No Travel Risk - International Travel Have you traveled outside of the country in past 3 weeks: No - Emerging Infectious Disease Are you exhibiting symptoms associated with any current EIDs: Yes Symptoms: Shortness of Breath, Vomitting - Review of Systems Constitutional: No Symptoms Eyes: No Symptoms Ears, Nose, & Throat: No Symptoms Cardiac: No Symptoms Abdominal/Gastrointestinal: No Symptoms Genitourinary Symptoms: No Symptoms Musculoskeletal: No Symptoms Skin: No Symptoms Neurological: No Symptoms Psychological: Anxiety Endocrine: No Symptoms Hematologic/Lymphatic: No Symptoms Immunological/Allergic: No Symptoms All Other Systems: Reviewed and Negative - Past Medical History Pertinent Past Medical History: Yes Neurological History: Migraines ENT History: No Pertinent History Cardiac History: Congenital Heart Disease, Congestive Heart Failure, Other Respiratory History: No Pertinent History Endocrine Medical History: No Pertinent History Musculoskeletal History: No Pertinent History GI Medical History: Irritable Bowel History: No Pertinent History Psycho-Social History: Anxiety, Depression, Panic Disorder Female Reproductive Disorders: Other Other Medical History: CHD, heart murmur; congenital septal defect; abnormal PAP - Past Surgical History Past Surgical History: Yes Neuro Surgical History: No Pertinent History Cardiac: No Pertinent History Respiratory: No Pertinent History Gastrointestinal: No Pertinent History Genitourinary: No Pertinent History Musculoskeletal: No Pertinent History Female Surgical History: Tubal Ligation Other Surgical History: SURGERY ON FOREHEAD, pt states R eye surgery at 7 years old. sinus surgery to removed "BB" that was "snuffed" up her nose as a small child. denies any other surgeries. tubal - Social History Smoking Status: Current every day smoker How long have you smoked: years Exposure to second hand smoke: Yes Drug Use: none Patient Lives Alone: No - Nursing Vital Signs Nursing Vital Signs: Initial Vital Signs Blood Pressure 114/73 // 11:37 Pain Scale Pain Intensity 8 - Physical Exam General Appearance: no apparent distress, alert, anxiety Eye Exam: PERRL/EOMI, eyes nml inspection Ears, Nose, Throat Exam: hearing grossly normal, normal ENT inspection Neck Exam: normal inspection, non-tender, supple, full range of motion Respiratory Exam: normal breath sounds, chest tenderness, lungs clear, airway intact, No respiratory distress Cardiovascular/Chest Exam: normal heart sounds, regular rate/rhythm, normal peripheral pulses Abdominal/Gastrointestinal Exam: soft, normal bowel sounds, tenderness (Epigastric region) Rectal Exam: not done Extremity Exam: non-tender, normal range of motion, normal inspection, normal capillary refill, no calf tenderness, no pedal edema, pelvis stable Neurologic Exam: alert, oriented x 3, cooperative, ocean forwarder II-XII nml as tested, normal mood/affect, nml cerebellar function, nml station & gait, sensation nml Skin Exam: normal color, warm, dry Lymphatic Exam: No adenopathy SpO2 Interpretation: normal O2 Delivery: Room Air - Course Nursing assessment & vital signs reviewed: Yes EKG Interpreted by Me: RATE (80), Sinus Rhythm, NORMAL AXIS, NORMAL INTERVALS, NORMAL QRS, Other (No acute ischemic changes on today's twelve-lead EKG.) Ordered Tests: Active Orders 24 hr Category Date Time Status EKG-ER Only STAT Care 01/07/24 11:51 Active IV Insertion STAT Care 01/07/24 11:51 Active ABDOMEN AND PELVIS W/0 CONTRAS [CT] Stat Exams 01/07/24 11:51 Completed CHEST 1 VIEW (PORTABLE) Stat Exams 01/07/24 11:52 Completed AMYLASE Stat Lab 01/07/24 12:20 Completed CBC W DIFF Stat Lab 01/07/24 12:20 Completed CMP Stat Lab 01/07/24 12:20 Completed D-DIMER QUANTITATIVE Stat Lab 01/07/24 12:20 Completed LIPASE Stat Lab 01/07/24 12:20 Completed NT PRO BNPII Stat Lab 01/07/24 12:20 Completed TROPONIN Q4H Lab 01/07/24 12:20 Completed TROPONIN Q4H Lab 01/07/24 16:00 Ordered TROPONIN Q4H Lab 01/07/24 20:00 Ordered UA W/RFX UR CULTURE Stat Lab 01/07/24 12:39 Ordered Medication Summary Generic Name Dose Route Start Last Admin Trade Name Freq PRN Reason Stop Dose Admin Metronidazole 500 mg in 100 mls @ 200 mls/hr 01/07/24 12:32 01/07/24 12:58 Flagyl 500 Mg Ivpb IV 01/07/24 13:01 200 mls/hr STAT STA 200 mls/hr Administration Discontinued Medications Generic Name Dose Route Start Last Admin Trade Name Freq PRN Reason Stop Dose Admin Sodium Chloride 1,000 mls @ 999 mls/hr 01/07/24 11:51 01/07/24 12:00 Sodium Chloride 0.9% 1000 Ml IV 01/07/24 12:51 999 mls/hr .Q1H1M STA Administration Sodium Chloride Confirm 01/07/24 11:55 Sodium Chloride 0.9% 1000 Ml Administered 01/07/24 11:56 Dose 1,000 mls @ ud .ROUTE .STK-MED ONE Metronidazole Confirm 01/07/24 12:57 Flagyl 500 Mg Ivpb Administered 01/07/24 12:58 Dose 500 mg in 100 mls @ ud IV .STK-MED ONE Levofloxacin 500 mg 01/07/24 12:33 01/07/24 12:58 Levofloxacin 500 Mg Tablet PO 01/07/24 12:34 500 mg STAT ONE Administration Levofloxacin Confirm 01/07/24 12:57 Levofloxacin 500 Mg Tablet Administered 01/07/24 12:58 Dose 500 mg .ROUTE .STK-MED ONE Morphine Sulfate 4 mg 01/07/24 11:51 01/07/24 12:00 Morphine Sulfate 4 Mg/Ml Injection IV 01/07/24 11:52 4 mg STAT ONE Administration Morphine Sulfate Confirm 01/07/24 11:55 Morphine Sulfate 4 Mg/Ml Injection Administered 01/07/24 11:56 Dose 4 mg .ROUTE .STK-MED ONE Ondansetron HCl 4 mg 01/07/24 11:51 01/07/24 12:00 Ondansetron Hcl 4 Mg/2 Ml Vial IV 01/07/24 11:52 4 mg STAT ONE Administration Ondansetron HCl Confirm 01/07/24 11:54 Ondansetron Hcl 4 Mg/2 Ml Vial Administered 01/07/24 11:55 Dose 4 mg .ROUTE .STK-MED ONE Lab/Rad Data: Laboratory Result Diagrams 01/07/24 12:20 01/07/24 12:20 Laboratory Results 01/07/24 01/07/24 01/07/24 Range/Units 12:20 12:20 12:20 WBC (4.0-10.5) x10^3/uL RBC (4.1-5.4) x10^6/uL Hgb (12.0-16.0) g/dL Hct (35-47) % MCV (78-100) fL MCH (26-32) pg MCHC (32-36) g/dL RDW (11.5-14.0) % Plt Count (150-450) x10^3/uL MPV (7.5-11.0) fL Gran % (36.0-66.0) % Immature Gran % (Auto) (0.00-0.4) % Nucleat RBC Rel Count (0.00-0.1) % Eos # (Auto) (0-0.5) x10^3/uL Immature Gran # (Auto) (0.00-0.03) x10^3u/L Absolute Lymphs (auto) (1.0-4.6) x10^3/uL Absolute Monos (auto) (0.0-1.3) x10^3/uL Absolute Nucleated RBC (0.00-0.01) x10^3u/L Lymphocytes % (24.0-44.0) % Monocytes % (0.0-12.0) % Eosinophils % (0.00-5.0) % Basophils % (0.0-0.4) % Absolute Granulocytes (1.4-6.9) x10^3/uL Basophils # (0-0.4) x10^3/uL D-Dimer 0.35 (0.0-0.50) mg/L Sodium 140 (135-145) mmol/L Potassium 3.8 (3.5-5.1) mmol/L Chloride 110 H (98-107) mmol/L Carbon Dioxide 20 L (22-30) mmol/L Anion Gap 14.3 (5-15) MEQ/L BUN 10 (7-17) mg/dL Creatinine 0.74 (0.52-1.04) mg/dL Estimated GFR 110.9 ML/MIN Glucose 89 (74-106) mg/dL Calcium 8.7 (8.4-10.2) mg/dL Total Bilirubin 0.20 (0.2-1.3) mg/dL AST 21 (14-36) U/L ALT 10 (0-35) U/L Alkaline Phosphatase 70 (38-126) U/L Troponin I < 0.012 (0.000-0.034) ng/mL NT-Pro-B Natriuret Pep 134 (<300) pg/mL Serum Total Protein 6.6 (6.3-8.2) g/dL Albumin 3.8 (3.5-5.0) g/dL Amylase 94 (30-110) U/L Lipase 109 (23-300) U/L 03/25/24 Range/Units 12:20 WBC 14.9 H (4.0-10.5) x10^3/uL RBC 4.47 (4.1-5.4) x10^6/uL Hgb 14.3 (12.0-16.0) g/dL Hct 42.2 (35-47) % MCV 94.4 (78-100) fL MCH 32.0 (26-32) pg MCHC 33.9 (32-36) g/dL RDW 13.5 (11.5-14.0) % Plt Count 307 (150-450) x10^3/uL MPV 9.9 (7.5-11.0) fL Gran % 77.6 H (36.0-66.0) % Immature Gran % (Auto) 0.4 (0.00-0.4) % Nucleat RBC Rel Count 0.0 (0.00-0.1) % Eos # (Auto) 0.12 (0-0.5) x10^3/uL Immature Gran # (Auto) 0.06 H (0.00-0.03) x10^3u/L Absolute Lymphs (auto) 2.43 (1.0-4.6) x10^3/uL Absolute Monos (auto) 0.66 (0.0-1.3) x10^3/uL Absolute Nucleated RBC 0.00 (0.00-0.01) x10^3u/L Lymphocytes % 16.3 L (24.0-44.0) % Monocytes % 4.4 (0.0-12.0) % Eosinophils % 0.8 (0.00-5.0) % Basophils % 0.5 (0.0-0.4) % Absolute Granulocytes 11.60 H (1.4-6.9) x10^3/uL Basophils # 0.07 (0-0.4) x10^3/uL D-Dimer (0.0-0.50) mg/L Sodium (135-145) mmol/L Potassium (3.5-5.1) mmol/L Chloride (98-107) mmol/L Carbon Dioxide (22-30) mmol/L Anion Gap (5-15) MEQ/L BUN (7-17) mg/dL Creatinine (0.52-1.04) mg/dL Estimated GFR ML/MIN Glucose (74-106) mg/dL Calcium (8.4-10.2) mg/dL Total Bilirubin (0.2-1.3) mg/dL AST (14-36) U/L ALT (0-35) U/L Alkaline Phosphatase (38-126) U/L Troponin I (0.000-0.034) ng/mL NT-Pro-B Natriuret Pep (<300) pg/mL Serum Total Protein (6.3-8.2) g/dL Albumin (3.5-5.0) g/dL Amylase (30-110) U/L Lipase (23-300) U/L - Progress Progress: improved, re-examined Air Movement: good Progress Note: 01/07/24 11:49 This patient's medical issue is 1 of moderate complexity. The level of complexity in the workup performed is based on review of the patient's past medical history, review of the patient's medication list, review of patient drug allergy list, history present illness and physical findings on examination. This patient's workup includes placement of intravenous line, infusion of normal saline solution, twelve-lead EKG, D-dimer level, troponin level, urinalysis, CBC, CMP, amylase, lipase and chest x-ray. In addition because of her vomiting symptoms and the epigastric pain, we will order a CT scan of the abdomen pelvis. 01/07/24 12:48 I interpreted the patient's laboratory data results. The patient does have leukocytosis. We are awaiting the remainder of the laboratory data results to return. Chest x-ray was interpreted by the radiologist and I reviewed the impression. There is tiny left perihilar calcified nodes. Otherwise chest x-ray is within normal limits. Findings were discussed with the patient. CT scan of the abdomen pelvis without contrast was interpreted by the radiologist and I reviewed the impression. There is new circumferential wall thickening mid ascending colon with pericolonic stranding. Rule out colitis. The appendix and gallbladder are normal. Findings were discussed with the patient. 01/07/24 13:01 Blood Culture(s) Obtained: Yes Antibiotics given: Yes Counseled pt/family regarding: lab results, diagnosis, need for follow-up, rad results Medical Desision Making - Diagnostic Testing Diagnostic test were ordered, analyzed, and reviewed by me: Yes Radiological Interpretation: Reviewed by me, Teleradiologist Report - Risk of complications The pt has a mod risk of morbidity or mortality based on: Need for prescription drug management - Departure Departure Disposition: Home Clinical Impression: Colitis, Pulmonary nodule Condition: Stable Critical Care Time: No Referrals: DOCTOR,NO FAMILY [Primary Care Provider] - Follow up/PCP as directed Additional Instructions: Drink plenty clear liquids before advancing diet. Call your primary care provider today, 01/07/2024, to make arranges for follow-up appointment next 3 to 5 days to discuss the calcified pulmonary nodules and colitis issues we found today on your workup as well as possible colonoscopy in the future. Take your medications as prescribed. Prescriptions: Ondansetron ODT 4 MG [Zofran Odt 4 mg] 4 mg PO Q6H PRN PRN #10 tablet PRN Reason: Vomiting Hydrocodone/APAP 5/325 [[place] 5/325 mg] 1 each PO Q8H PRN PRN #10 tablet MDD 6 PRN Reason: Pain Ciprofloxacin [Cipro 500 MG] 500 mg PO BID #14 tablet Metronidazole 500 mg [Flagyl 500 MG] 500 mg PO TID #21 tablet
[2024-01-07 11:49] VITALS: TEMP 97
[2024-01-07] MEDS ORDERED: Zofran 4 MG/2 ML VIAL ONE (11:54)
[2024-01-07] MEDS ORDERED: Sodium Chloride 0.9% 1000 ML 1,000 ML ONE (11:55)
[2024-01-07] MEDS ORDERED: MORPHINE SULFATE 4 MG INJ ONE (11:55)
[2024-01-07] MEDS: Zofran 4 MG/2 ML VIAL IV ONE (12:00)
[2024-01-07] MEDS: Sodium Chloride 0.9% 1000 ML 1,000 ML IV STA (12:00)
[2024-01-07] MEDS: MORPHINE SULFATE 4 MG INJ IV ONE (12:00)
--- NOTE | 2024-01-07 12:29 | XRAY ---
Indication: Chest pain. Short of breath. Comparison: August 21, 2022 Portable chest again demonstrates normal heart, lungs, and bony thorax with incidental tiny left perihilar calcified nodes.
--- NOTE | 2024-01-07 12:29 | XRAY ---
Indication: Epigastric pain, nausea, and vomiting. Multiple contiguous axial images obtained through the abdomen and pelvis without contrast. Comparison: May 27, 2014 Lung bases clear. Heart not enlarged. Noncontrasted stomach and bowel loops appear nonobstructed with normal-appearing appendix. Mid ascending colon now demonstrates mild circumferential wall thickening with minimal pericolonic stranding favoring inflammatory processes such as colitis. No free fluid/air. Remaining liver, gallbladder, pancreas, spleen, adrenal glands, kidneys, ureters, bladder, uterus, and aorta are unremarkable for noncontrast exam. Osseous structures intact. No ventral or inguinal hernias. Impression: 1. New circumferential wall thickening mid ascending colon with minimal pericolonic stranding. Rule out colitis. 2. Remaining CT abdomen/pelvis without contrast exam is negative.
[2024-01-07 12:32] LABS: BASOPHIL % 0.5 % (0.0-0.4); Basophil (Absolute #) 0.07 x10^3/uL (0-0.4); Eosinophil % 0.8 % (0.00-5.0); Eosinophil (Absolute #) 0.12 x10^3/uL (0-0.5); Hematocrit 42.2 % (35-47); Hemoglobin 14.3 g/dL (12.0-16.0); IMMATURE GRAN # 0.06 x10^3u/L (0.00-0.03); IMMATURE GRAN % 0.4 % (0.00-0.4); Lymphocyte (Absolute #) 2.43 x10^3/uL (1.0-4.6); Lymphocytes % 16.3 % (24.0-44.0); Mean Cell Volume 94.4 fL (78-100); Mean Corpuscular Hgb Concent. 33.9 g/dL (32-36); Mean Platelet Volume 9.9 fL (7.5-11.0); Monocyte (Absolute #) 0.66 x10^3/uL (0.0-1.3); Monocytes % 4.4 % (0.0-12.0); Neutrophil % 77.6 % (36.0-66.0); Platelet Count 307 x10^3/uL (150-450); Red Blood Count 4.47 x10^6/uL (4.1-5.4); Red Cell Distribution Width 13.5 % (11.5-14.0); White Blood Count 14.9 x10^3/uL (4.0-10.5)
[2024-01-07 12:44] LABS: ALBUMIN 3.8 g/dL (3.5-5.0); ANION GAP 14.3 MEQ/L (5-15); BILIRUBIN,TOTAL 0.2 mg/dL (0.2-1.3); Calcium 8.7 mg/dL (8.4-10.2); Creatinine 1 0.74 mg/dL (0.52-1.04); EST GLOMERULAR FILTRATION RATE 110.9 ML/MIN; Potassium 3.8 mmol/L (3.5-5.1); Total Protein 6.6 g/dL (6.3-8.2)
[2024-01-07 12:55] LABS: NT PRO BNPII 134 pg/mL (<300); TROPONIN < 0.012 ng/mL (0.000-0.034)
[2024-01-07] MEDS ORDERED: FLAGYL 500 MG IVPB 500 MG/100 ML BAG IV ONE (12:57)
[2024-01-07] MEDS ORDERED: Levofloxacin 500 MG Tablet ONE (12:57)
[2024-01-07] MEDS: Levofloxacin 500 MG Tablet PO ONE (12:58)
[2024-01-07] MEDS: FLAGYL 500 MG IVPB 500 MG/100 ML BAG IV STA (12:58)
[2024-01-07 13:06] LABS: INFLUENZA A NEGATIVE (NEGATIVE); INFLUENZA B NEGATIVE (NEGATIVE); RESPIRATORY SYNCTIAL VIRUS NEGATIVE (NEGATIVE); SARS-CoV-2 Xpert Express NEGATIVE (NEGATIVE)
[2024-01-07 13:26] LABS: Appearance Clear (Clear); Bacteria None Seen /HPF (None Seen); Bilirubin Negative (Negative); Blood Negative (Negative); Epithelial Cells None Seen /HPF (None Seen); Glucose, Urine Negative (Negative); Hyaline Casts NONE SEEN /LPF (0-2); Ketones Negative (Negative); Leukocyte Esterase Negative (Negative); Nitrite Negative (Negative); Protein,Urine Dip Negative (Negative); RBC 0-2 /HPF (0-5); Urobilinogen 0.2 mg/dL (0.2); WBC 0-2 /HPF (0-5)
[2024-01-07 13:28] LABS: ADD URINE CULTURE? NO (NO)
[2024-01-07 13:34] VITALS: BP 119/86; PULSE 68; RESP 18; O2SAT 97
== END 2024-01-07 13:43 | disposition home or self-care (01) ==
LOC: ED 11:35
DX: K52.9 Noninfective gastroenteritis and colitis, unspecified (principal); R91.1 Solitary pulmonary nodule; R11.2 Nausea with vomiting, unspecified; R07.9 Chest pain, unspecified; Z79.891 Long term (current) use of opiate analgesic; Z79.899 Other long term (current) drug therapy; Z72.0 Tobacco use
CPT/HCPCS: 0241U; 36000; 36415; 71045; 74176; 80053; 81001; 82150; 83690; 83880; 84484; 85025; 85379; 93005; 96360; 96374; 96375; 99284; J2270; J2405; A9270-GY

== ENCOUNTER 2024-02-25 20:33 | Emergency (ER) | payer OTHER ==
[2024-02-25 20:48] VITALS: RESP 16; TEMP 97.6
--- NOTE | 2024-02-25 21:01 | ERPHSYRPT ---
- History of Present Illness Time Seen by Provider: 02/25/24 21:00 Source: patient Exam Limitations: no limitations Patient Subjective Stated Complaint: pt states she stepped on a chainsaw Triage Nursing Assessment: pt came into the er via wheelchair; pt transfer to cot per self; axo x3; c/o laceration; pt states 9/10 pain to left foot; laceration present between digits 4 and 5 on left foot; laceration present to the planter side of 5th digit; no respiratory distress present; skin PDW; vitals wnl Allergies/Adverse Reactions: bee venom protein (honey bee) Allergy (Severe, Verified 02/25/24 20:37) Swelling clarithromycin [From Biaxin] Allergy (Verified 02/25/24 20:37) pt not sure what reaction is Home Medications: No Reportable Medications [No Reported Medications] 02/25/24 [History] Hx Tetanus, Diphtheria Vaccination/Date Given: Yes (2021) Hx Influenza Vaccination/Date Given: No Hx Pneumococcal Vaccination/Date Given: No Travel Risk - International Travel Have you traveled outside of the country in past 3 weeks: No - Emerging Infectious Disease Are you exhibiting symptoms associated with any current EIDs: No Symptoms: Shortness of Breath, Vomitting - Past Medical History Pertinent Past Medical History: Yes Neurological History: Migraines ENT History: No Pertinent History Cardiac History: Congenital Heart Disease, Congestive Heart Failure, Other Respiratory History: No Pertinent History Endocrine Medical History: No Pertinent History Musculoskeletal History: No Pertinent History GI Medical History: Irritable Bowel History: No Pertinent History Psycho-Social History: Anxiety, Depression, Panic Disorder Female Reproductive Disorders: Other Other Medical History: CHD, heart murmur; congenital septal defect; abnormal PAP - Past Surgical History Past Surgical History: Yes Neuro Surgical History: No Pertinent History Cardiac: No Pertinent History Respiratory: No Pertinent History Gastrointestinal: No Pertinent History Genitourinary: No Pertinent History Musculoskeletal: No Pertinent History Female Surgical History: Tubal Ligation Other Surgical History: SURGERY ON FOREHEAD, pt states R eye surgery at 7 years old. sinus surgery to removed "BB" that was "snuffed" up her nose as a small child. denies any other surgeries. tubal - Female History Hx Now: No - Social History Smoking Status: Current every day smoker How long have you smoked: years Exposure to second hand smoke: Yes Drug Use: none Patient Lives Alone: No - Nursing Vital Signs Nursing Vital Signs: Initial Vital Signs Temperature 97.6 F 02/25/24 20:38 Pulse Rate 77 02/25/24 20:38 Respiratory Rate 16 02/25/24 20:38 Blood Pressure 101/76 02/25/24 20:38 O2 Sat by Pulse Oximetry 100 02/25/24 20:38 Pain Scale Pain Intensity 9 - Physical Exam SpO2: 100 - Departure Referrals: DOCTOR,NO FAMILY [Primary Care Provider] - Follow up/PCP as directed
[2024-02-25 22:06] VITALS: BP 116/79; PULSE 78; O2SAT 100
== END 2024-02-25 22:26 | disposition left against medical advice (07) ==
LOC: ED 20:33
DX: S91.312A Laceration without foreign body, left foot, initial encounter (principal)
CPT/HCPCS: 99281; G0463

== ENCOUNTER 2024-06-09 17:12 | Emergency (ER) | payer OTHER ==
[2024-06-09 18:05] VITALS: BP 111/73; PULSE 69; RESP 18; O2SAT 100
== END 2024-06-09 18:36 | disposition home or self-care (01) ==
LOC: ED 17:12
DX: R51.9 Headache, unspecified (principal)
CPT/HCPCS: 99281; G0463

== ENCOUNTER 2024-10-23 19:36 | Emergency (ER) | payer MEDICAID, OTHER ==
[2024-10-23 19:52] VITALS: RESP 20; TEMP 100.6
[2024-10-23] MEDS ORDERED: TYLENOL EXTRA STRENGTH 500 MG ONE (20:07)
[2024-10-23] MEDS: TYLENOL 325 MG PO STA (20:13)
[2024-10-23] MEDS: TYLENOL EXTRA STRENGTH 500 MG PO ONE (20:14)
--- NOTE | 2024-10-23 20:22 | ERPHSYRPT ---
- History of Present Illness Time Seen by Provider: 10/23/24 19:40 Source: patient Exam Limitations: no limitations Patient Subjective Stated Complaint: pt states fever for the past 24 hours Triage Nursing Assessment: pt came into the er via wheelchair; pt transfer to cot per self; pt is axo x4; c/o fever; febrile 100.6; c/o bodyaches; pt states 8/10 generalized pain; skin PDW; no respiratory distress present Physician History: 34 years old female presented in the ER with 1 week history of flulike symptoms with aches and pains all over with some congestion and cough productive of clear to yellow sputum. Last night started to have fever with a Tmax of 102. Patient has not taken any Tylenol/ibuprofen and currently temperature is 100.9. Reports generalized weakness fatigue tiredness. Positive sick contact. No abdominal pain nausea vomiting or diarrhea. Allergies/Adverse Reactions: bee venom protein (honey bee) Allergy (Severe, Verified 10/23/24 19:42) Swelling clarithromycin [From Biaxin] Allergy (Verified 10/23/24 19:42) pt not sure what reaction is Hx Tetanus, Diphtheria Vaccination/Date Given: Yes Hx Influenza Vaccination/Date Given: No Hx Pneumococcal Vaccination/Date Given: No Travel Risk - International Travel Have you traveled outside of the country in past 3 weeks: No - Emerging Infectious Disease Are you exhibiting symptoms associated with any current EIDs: Yes Symptoms: Cough: New Onset, Fever, Headaches/Body Aches/ - Review of Systems Constitutional: Fatigue, Weakness Eyes: No Symptoms Ears, Nose, & Throat: Nose Congestion, Throat Pain Respiratory: Cough Cardiac: Chest Pain Abdominal/Gastrointestinal: No Symptoms Genitourinary Symptoms: No Symptoms Musculoskeletal: Myalgias Skin: No Symptoms Neurological: Headache Psychological: No Symptoms Hematologic/Lymphatic: No Symptoms Immunological/Allergic: No Symptoms - Past Medical History Pertinent Past Medical History: Yes Neurological History: Migraines ENT History: No Pertinent History Cardiac History: Congenital Heart Disease, Congestive Heart Failure, Other Respiratory History: No Pertinent History Endocrine Medical History: No Pertinent History Musculoskeletal History: No Pertinent History GI Medical History: Irritable Bowel History: No Pertinent History Psycho-Social History: Anxiety, Depression, Panic Disorder Female Reproductive Disorders: Other Other Medical History: CHD, heart murmur; congenital septal defect; abnormal PAP - Past Surgical History Past Surgical History: Yes Neuro Surgical History: No Pertinent History Cardiac: No Pertinent History Respiratory: No Pertinent History Gastrointestinal: No Pertinent History Genitourinary: No Pertinent History Musculoskeletal: No Pertinent History Female Surgical History: Tubal Ligation Other Surgical History: SURGERY ON FOREHEAD, pt states R eye surgery at 7 years old. sinus surgery to removed "BB" that was "snuffed" up her nose as a small child. denies any other surgeries. tubal - Female History Hx Last Menstrual Period: 10/13/24 Hx Now: No - Social History Smoking Status: Current every day smoker How long have you smoked: years Exposure to second hand smoke: Yes Drug Use: none Patient Lives Alone: No - Social Determinants of Health Will the patient participate in the screening: Declined to provide - Nursing Vital Signs Nursing Vital Signs: Initial Vital Signs Pulse Rate 106 H 10/23/24 19:43 Blood Pressure 104/74 10/23/24 19:43 O2 Sat by Pulse Oximetry 99 10/23/24 19:43 Pain Scale Pain Intensity 6 - Physical Exam General Appearance: no apparent distress, alert Eye Exam: PERRL/EOMI Ears, Nose, Throat Exam: moist mucous membranes, pharyngeal erythema Neck Exam: normal inspection, non-tender, supple, full range of motion Respiratory Exam: normal breath sounds, lungs clear Cardiovascular Exam: regular rate/rhythm, normal heart sounds Gastrointestinal/Abdomen Exam: soft, normal bowel sounds, No tenderness Back Exam: normal inspection Extremity Exam: normal inspection, normal range of motion, pelvis stable Neurologic Exam: alert, oriented x 3, cooperative Skin Exam: normal color SpO2 Interpretation: normal SpO2: 99 O2 Delivery: Room Air Ordered Tests: Active Orders 24 hr Category Date Time Status CHEST 1 VIEW (PORTABLE) Stat Exams 10/23/24 20:21 Taken CBC W DIFF Stat Lab 10/23/24 20:25 Completed CMP Stat Lab 10/23/24 20:25 Completed HCG QUALITATIVE, SERUM Stat Lab 10/23/24 20:25 Completed MAGNESIUM Stat Lab 10/23/24 20:25 Completed Medication Summary Discontinued Medications Generic Name Dose Route Start Last Admin Trade Name Freq PRN Reason Stop Dose Admin Acetaminophen Confirm 10/23/24 20:07 Acetaminophen 500 Mg Tablet Administered 10/23/24 20:08 Dose 1,000 mg .ROUTE .STK-MED ONE Acetaminophen 975 mg 10/23/24 20:11 10/23/24 20:13 Acetaminophen 325 Mg Tablet PO 10/23/24 20:12 Not Given STAT STA Acetaminophen 1,000 mg 10/23/24 20:13 10/23/24 20:14 Acetaminophen 500 Mg Tablet PO 10/23/24 20:14 1,000 mg STAT ONE Administration Lab/Rad Data: Laboratory Result Diagrams 10/23/24 20:25 10/23/24 20:25 Laboratory Results 10/23/24 10/23/24 10/23/24 Range/Units 20:25 20:25 20:25 WBC (3.98-10.04) x10^3/uL RBC (3.93-5.22) x10^6/uL Hgb (11.2-15.7) g/dL Hct (34.1-44.9) % MCV (79.4-94.8) fL MCH (25.6-32.2) pg MCHC (32.2-35.5) g/dL RDW (11.7-14.4) % Plt Count (182-369) x10^3/uL MPV (9.4-12.3) fL Gran % (34.0-71.1) % Immature Gran % (Auto) (0.001-0.429) % Nucleat RBC Rel Count (0.00-0.2) % Eos # (Auto) (0.04-0.36) x10^3/uL Immature Gran # (Auto) (0.001-0.031) x10^3u/L Absolute Lymphs (auto) (1.18-3.74) x10^3/uL Absolute Monos (auto) (0.24-0.86) x10^3/uL Absolute Nucleated RBC (0.00-0.012) x10^3u/L Lymphocytes % (19.3-51.7) % Monocytes % (4.7-12.5) % Eosinophils % (0.7-5.8) % Basophils % (0.1-1.2) % Absolute Granulocytes (1.56-6.13) x10^3/uL Basophils # (0.01-0.08) x10^3/uL Sodium 135 (135-145) mmol/L Potassium 3.7 (3.5-5.1) mmol/L Chloride 103 (98-107) mmol/L Carbon Dioxide 24 (22-30) mmol/L Anion Gap 11.9 (5-15) MEQ/L BUN 5 L (7-17) mg/dL Creatinine 0.75 (0.52-1.04) mg/dL Estimated GFR 108.4 ML/MIN Glucose 88 (74-106) mg/dL Calcium 9.0 (8.4-10.2) mg/dL Magnesium 1.5 L (1.6-2.3) mg/dL Total Bilirubin 1.00 (0.2-1.3) mg/dL AST 22 (14-36) U/L ALT 15 (0-35) U/L Alkaline Phosphatase 55 (38-126) U/L Serum Total Protein 7.5 (6.3-8.2) g/dL Albumin 4.5 (3.5-5.0) g/dL Serum HCG, Qual NEGATIVE (NEGATIVE) Influenza Type A Ag NEGATIVE (NEGATIVE) Influenza Type B Ag NEGATIVE (NEGATIVE) RSV (PCR) NEGATIVE (NEGATIVE) SARS-CoV-2 (PCR) NEGATIVE (NEGATIVE) 10/23/24 Range/Units 20:25 WBC 12.7 H (3.98-10.04) x10^3/uL RBC 4.69 (3.93-5.22) x10^6/uL Hgb 14.7 (11.2-15.7) g/dL Hct 42.4 (34.1-44.9) % MCV 90.4 (79.4-94.8) fL MCH 31.3 (25.6-32.2) pg MCHC 34.7 (32.2-35.5) g/dL RDW 12.8 (11.7-14.4) % Plt Count 233 (182-369) x10^3/uL MPV 10.1 (9.4-12.3) fL Gran % 79.9 H (34.0-71.1) % Immature Gran % (Auto) 0.3 (0.001-0.429) % Nucleat RBC Rel Count 0.0 (0.00-0.2) % Eos # (Auto) 0.01 L (0.04-0.36) x10^3/uL Immature Gran # (Auto) 0.04 H (0.001-0.031) x10^3u/L Absolute Lymphs (auto) 1.49 (1.18-3.74) x10^3/uL Absolute Monos (auto) 0.96 H (0.24-0.86) x10^3/uL Absolute Nucleated RBC 0.00 (0.00-0.012) x10^3u/L Lymphocytes % 11.8 L (19.3-51.7) % Monocytes % 7.6 (4.7-12.5) % Eosinophils % 0.1 L (0.7-5.8) % Basophils % 0.3 (0.1-1.2) % Absolute Granulocytes 10.13 H (1.56-6.13) x10^3/uL Basophils # 0.04 (0.01-0.08) x10^3/uL Sodium (135-145) mmol/L Potassium (3.5-5.1) mmol/L Chloride (98-107) mmol/L Carbon Dioxide (22-30) mmol/L Anion Gap (5-15) MEQ/L BUN (7-17) mg/dL Creatinine (0.52-1.04) mg/dL Estimated GFR ML/MIN Glucose (74-106) mg/dL Calcium (8.4-10.2) mg/dL Magnesium (1.6-2.3) mg/dL Total Bilirubin (0.2-1.3) mg/dL AST (14-36) U/L ALT (0-35) U/L Alkaline Phosphatase (38-126) U/L Serum Total Protein (6.3-8.2) g/dL Albumin (3.5-5.0) g/dL Serum HCG, Qual (NEGATIVE) Influenza Type A Ag (NEGATIVE) Influenza Type B Ag (NEGATIVE) RSV (PCR) (NEGATIVE) SARS-CoV-2 (PCR) (NEGATIVE) - Progress Progress: improved, re-examined Air Movement: good Progress Note: 10/23/24 21:38 34 years old is evaluated in the ER for cough congestion symptoms for 1 week and developing fever since yesterday. Patient has low-grade temperature and here, given Tylenol. She is not in any distress. Oxygen saturation in mid to upper 90s, no tachypnea. Tachycardia improved after Tylenol. Chest x-ray showed questionable airspace disease on the left lower lobe. Has a white count of 12, chemistries fairly unremarkable except for mildly low magnesium. I believe patient had initially viral URI with cough congestion followed by bacterial colonization and I will treat her with doxycycline and albuterol to go home, recommended symptomatic and supportive care along with it. Discussed signs symptoms of worsening needing return to ER which she seems understanding. Stable for discharge. Blood Culture(s) Obtained: No Antibiotics given: Yes Counseled pt/family regarding: lab results, diagnosis, need for follow-up, rad results Medical Desision Making - Diagnostic Testing Diagnostic test were ordered, analyzed, and reviewed by me: Yes Radiological Interpretation: Interpreted by me, Reviewed by me - Risk of complications The pt has a mod risk of morbidity or mortality based on: Need for prescription drug management - Departure Departure Disposition: Home Clinical Impression: Acute bronchitis Condition: Stable Critical Care Time: No Referrals: DOCTOR,NO FAMILY [Primary Care Provider] - Follow up with PCP 1 day Instructions: Fever, Adult (DC) Additional Instructions: Take Tylenol/ibuprofen as needed. Drink plenty of fluids to keep yourself well- hydrated. Follow-up with primary care for reevaluation. Return to ER for worsening cough difficulty breathing department, persistent high-grade fever chills etc. Prescriptions: Albuterol Sulfate [Albuterol Sulfate Hfa] 8.5 gm IH Q6H PRN 14 Days #1 inh PRN Reason: Cough Doxycycline Hyclate 100 mg [Vibramycin 100 MG] 100 mg PO BID #14 tab
[2024-10-23 20:29] LABS: Absolute Neutrophil Ct (ANC) 10.13 x10^3/uL (1.56-6.13); BASOPHIL % 0.3 % (0.1-1.2); Basophil (Absolute #) 0.04 x10^3/uL (0.01-0.08); Eosinophil % 0.1 % (0.7-5.8); Eosinophil (Absolute #) 0.01 x10^3/uL (0.04-0.36); Hematocrit 42.4 % (34.1-44.9); Hemoglobin 14.7 g/dL (11.2-15.7); IMMATURE GRAN # 0.04 x10^3u/L (0.001-0.031); IMMATURE GRAN % 0.3 % (0.001-0.429); Lymphocyte (Absolute #) 1.49 x10^3/uL (1.18-3.74); Lymphocytes % 11.8 % (19.3-51.7); Mean Cell Volume 90.4 fL (79.4-94.8); Mean Corpuscular Hemoglobin 31.3 pg (25.6-32.2); Mean Corpuscular Hgb Concent. 34.7 g/dL (32.2-35.5); Mean Platelet Volume 10.1 fL (9.4-12.3); Monocyte (Absolute #) 0.96 x10^3/uL (0.24-0.86); Monocytes % 7.6 % (4.7-12.5); Neutrophil % 79.9 % (34.0-71.1); Platelet Count 233 x10^3/uL (182-369); Red Blood Count 4.69 x10^6/uL (3.93-5.22); Red Cell Distribution Width 12.8 % (11.7-14.4); White Blood Count 12.7 x10^3/uL (3.98-10.04)
[2024-10-23 20:41] LABS: HCG SERUM TEST NEGATIVE (NEGATIVE)
[2024-10-23 20:42] LABS: ALBUMIN 4.5 g/dL (3.5-5.0); ANION GAP 11.9 MEQ/L (5-15); Creatinine 1 0.75 mg/dL (0.52-1.04); EST GLOMERULAR FILTRATION RATE 108.4 ML/MIN; MAGNESIUM 1.5 mg/dL (1.6-2.3); Potassium 3.7 mmol/L (3.5-5.1); Total Protein 7.5 g/dL (6.3-8.2)
[2024-10-23 21:07] LABS: INFLUENZA A NEGATIVE (NEGATIVE); INFLUENZA B NEGATIVE (NEGATIVE); RESPIRATORY SYNCTIAL VIRUS NEGATIVE (NEGATIVE); SARS-CoV-2 Xpert Express NEGATIVE (NEGATIVE)
[2024-10-23] MEDS ORDERED: Vibramycin 100 MG ONE (21:41)
[2024-10-23 21:42] VITALS: O2SAT 99
[2024-10-23] MEDS: Vibramycin 100 MG PO ONE (21:42)
[2024-10-23 21:44] VITALS: BP 107/69; PULSE 97
--- NOTE | 2024-10-24 08:42 | XRAY ---
Indication: Fever and cough. Comparison: January 07, 2024 Portable chest demonstrates new mild left base infiltrate/atelectasis without consolidation or large effusion. Remaining heart, right lung, and bony thorax normal.
== END 2024-10-23 21:54 | disposition home or self-care (01) ==
LOC: ED 19:36
DX: J20.9 Acute bronchitis, unspecified (principal); R05.1 Acute cough; R50.9 Fever, unspecified; R53.1 Weakness; Z72.0 Tobacco use; Z79.899 Other long term (current) drug therapy
CPT/HCPCS: 0241U; 36415; 71045; 80053; 83735; 84703; 85025; 99285; 99283; A9270-GY